=== PATIENT | female | born 1985 | race Caucasian/White ===

== ENCOUNTER 2017-05-19 16:56 | Inpatient (IN) | payer OTHER ==
[2017-05-19 17:47] VITALS: BMI 23.9
--- NOTE | 2017-05-19 18:49 | HP ---
Admission ROS [facility] - [facility] Chief Complaint: i want to go to rehab Allergies/Adverse Reactions: Allergies Allergy/AdvReac Type Severity Reaction Status Date / Time No Known Allergies Allergy Verified 05/19/17 18:48 History of Present Illness: 32 years old female with long history of heroin nicotine dependence has hepatitis c and depression is admitted to rehab Exam Limitations: No Limitations - Ebola screening Have you traveled outside of the country in the last 21 days: No (N) Have you had contact with anyone from an Ebola affected area: No Have you been sick,other than usual withdrawal symptoms: No Do you have a fever: No - Review of Systems Constitutional: Weight Stable EENT: reports: No Symptoms Reported Respiratory: reports: No Symptoms reported Cardiac: reports: No Symptoms Reported GI: reports: No Symptoms Reported : reports: No Symptoms Reported Musculoskeletal: reports: No Symptoms Reported Integumentary: reports: Change in Color (hands wrists iv curtis) Neuro: reports: No Symptoms reported Endocrine: reports: No Symptoms Reported Hematology: reports: No Symptoms Reported Psychiatric: reports: Judgement Intact, Orientated x3, Anxious, Depressed Other Systems: Reviewed and Negative Patient History - Patient Medical History Hx Anemia: No Hx Asthma: No Hx Chronic Obstructive Pulmonary Disease (COPD): No Hx Cancer: No Hx Cardiac Disorders: No Hx Congestive Heart Failure: No Hx Hypertension: No Hx Hypercholesterolemia: No Hx Pacemaker: No HX Cerebrovascular Accident: No Hx Seizures: No Hx Dementia: No Hx Diabetes: No Hx Gastrointestinal Disorders: No Hx Liver Disease: No Hx Genitourinary Disorders: No Hx Sexually Transmitted Disorders: No Hx Renal Disease (ESRD): No Hx Thyroid Disease: No Hx Human Immunodeficiency Virus (HIV): No Hx Hepatitis C: Yes Hx Depression: Yes Hx Suicide Attempt: No Hx Bipolar Disorder: No Hx Schizophrenia: No - Patient Surgical History Past Surgical History: Yes Hx Neurologic Surgery: No Hx Cataract Extraction: No Hx Cardiac Surgery: No Hx Lung Surgery: No Hx Breast Surgery: No Hx Breast Biopsy: No Hx Abdominal Surgery: No Hx Appendectomy: No Hx Cholecystectomy: No Hx Genitourinary Surgery: No Hx Section: Yes (x 1 2011) Hx Orthopedic Surgery: Yes (right mid finger 2017) Hx Hysterectomy: No Anesthesia Reaction: No - PPD History Previous Implant?: Yes Documented Results: Negative w/o proof Implanted On Prior R Admission?: No PPD to be Administered?: Yes - Reproductive History Patient is a Female of Child Bearing Age (11 -55 yrs old): Yes Last Menstrual Period: 05/19/12 Patient : No - Smoking Cessation Smoking history: Current every day smoker Have you smoked in the past 12 months: Yes Aproximately how many cigarettes per day: 20 Cigars Per Day: 0 Hx Chewing Tobacco Use: No Initiated information on smoking cessation: Yes 'Breaking Loose' booklet given: 05/19/17 - Substance & Tx. History Hx Alcohol Use: No Hx Substance Use: Yes Substance Use Type: Heroin Hx Substance Use Treatment: Yes (06/2016 [facility]) - Substances Abused Heroin Route: Injection Frequency: Daily Amount used: 20 bags Age of first use: 26 Date of Last Use: 05/12/17 Family Disease History - Family Disease History Family Disease History: Heart Disease: Father, Other: Mother (no contact), Sister (no contact) Admission Physical Exam S - Vital Signs Vital Signs: Vital Signs - 24 hr 05/19/17 17:45 Temperature 98.1 F Pulse Rate 99 H Respiratory 18 Rate Blood Pressure 115/70 - Physical General Appearance: Yes: No Apparent Distress, Nourished, Appropriately Dressed HEENTM: Yes: Hearing grossly Normal, Normal ENT Inspection, Normocephalic, Normal Voice Respiratory: Yes: Chest Non-Tender, Lungs Clear, Normal Breath Sounds, No Respiratory Distress, No Accessory Muscle Use Neck: Yes: Supple, Trachea in good position Breast: Yes: Breasts Symetrical Cardiology: Yes: Regular Rhythm, S1, S2, Tachycardia Abdominal: Yes: Normal Bowel Sounds, Non Tender, Soft Genitourinary: Yes: Within Normal Limits Back: Yes: Normal Inspection, Vertebral Tenderness Musculoskeletal: Yes: full range of Motion, Gait Steady Extremities: Yes: Normal Range of Motion, Non-Tender, Other (iv heroin both hands + wrists) Neurological: Yes: Fully Oriented, Alert, Motor Strength 5/5, Normal Mood/Affect , Normal Response Integumentary: Yes: Warm, Track Curtis Lymphatic: Yes: Within Normal Limits - Diagnostic (1) Alcohol dependence with uncomplicated withdrawal Current Visit: Yes Status: Acute (2) Anxiety and depression Current Visit: Yes Status: Suspected (3) Hepatitis C Current Visit: Yes Status: Chronic Qualifiers: Viral hepatitis chronicity: chronic Hepatic coma status: without hepatic coma Qualified Code(s): B18.2 - Chronic viral hepatitis C (4) Nicotine dependence Current Visit: Yes Status: Acute Qualifiers: Nicotine product type: cigarettes Substance use status: in withdrawal Qualified Code(s): F17.213 - Nicotine dependence, cigarettes, with withdrawal Cleared for Admission [facility] - Detox or Rehab [facility] Level of Care: Observation Bed Detox Regimen/Protocol: Not Applicable Claeared for Rehab Admission: Yes [facility] Breath Alcohol Content Breath Alcohol Content: 0 Urine Pregancy Test - Result Urine Test Results: Negative- NO Line Present Urine Drug Screen - Results Drug Screen Negative: No Urine Drug Screen Results: BZO-Benzodiazepines
[2017-05-19] MEDS ORDERED: MENTHOL/PHENOL 1 EACH UD MM PRN (19:07)
[2017-05-19] MEDS ORDERED: guaiFENesin/D-METHORPHAN HB 10 ML UNIT-DOSE CUPS PO PRN (19:07)
[2017-05-19] MEDS ORDERED: ACETAMINOPHEN 325 MG TABLET (FP) PO PRN (19:07)
[2017-05-19] MEDS ORDERED: MAGNESIUM CITRATE 300 ML BOTTLE PO PRN (19:07)
[2017-05-19] MEDS ORDERED: LOPERAMIDE HCL 2 MG CAPSULE PO PRN (19:07)
[2017-05-19] MEDS: THIAMINE HCL 100 MG TABLET (FP) PO SCH (23:44)
[2017-05-19] MEDS ORDERED: TUBERCULIN PPD 5 TU/0.1ML VIAL ID ONE (23:48)
--- NOTE | 2017-05-20 00:50 | PN ---
[facility] Progress Note Note: Psychiatry Attending's on-call note : Called to enter orders for medications. New admission : 32 y/o female seeking rehabilitation care for heroin dependence. First time referral to [facility] ([facility]). Discharged today from [facility] in [place] (detox). Diagnosed with MDD and Anxiety Disorder.Self-report. Ms Reis is requesting the following medications : seroquel 150 mg + trazodone 50 mg + remeron 15 mg. " These are my bedtime medications." Medications reconciled. No trazodone on file. Spoke to patient via telephone. Plan of care : Seroquel 50 mg po NOW. Will not order remeron or trazodone at this time. Gabapentin and sertraline to resume after psychiatric evaluation in AM. Side effects/benefits of seroquel are discussed with the patient. She aknowledges consent to this careplan.Normal vitals. Discussed with nurse on duty.
[2017-05-20] MEDS ORDERED: QUEtiapine FUMARATE 50 MG TABLET PO ONE ×2 (00:52→01:15)
[2017-05-20 02:50] LABS: URINE APPEARANCE SLCLOUDY; URINE BILIRUBIN NEGATIVE (NEGATIVE); URINE BLOOD NEGATIVE (NEGATIVE); URINE COLOR YELLOW; URINE GLUCOSE (UA) NEGATIVE (NEGATIVE); URINE KETONE NEGATIVE (NEGATIVE); URINE LEUK ESTERASE NEGATIVE (NEGATIVE); URINE NITRITE NEGATIVE (NEGATIVE); URINE PROTEIN NEGATIVE (NEGATIVE); URINE UROBILINOGEN NEGATIVE mg/dL (0.2-1.0)
--- NOTE | 2017-05-20 06:56 | HP ---
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 Smokes cigarettes 1ppd Psychiatric History: Reports that her first psychiatric contact was in college as a sophomore. She said that she was diagnosed with MDD, Anxiety and ADHD. Reports that she was tried on several medications including Lexapro, Zoloft, Adderall. Reports 4 previous psychiatric admissions to [facility]( short term unit) with most recent one being 05/14/17 to 05/19/17. She was discharged on Gabapentin 600 mg poTID, Seroquel 50 mg BID & 150 mg HS, Remeron 15 mg po HS and Trazadone 50 mg po HS. She denies history of suicidal attempt but has had SI. At present, reports feeling mildly depressed and sleeing poorly off medication. Physical/Sexual Abuse/Trauma History: Denies history of verbal, physical or sexual abuseas well as DV relationship Additional Comment: Reports history of a few felony arrests/convictions. Not on parole/probation but has an open case( posession of narcotic) Vital Signs: Vital Signs - 24 hr 05/19/17 05/20/17 17:45 03:30 Temperature 98.1 F Pulse Rate 99 H Respiratory 18 18 Rate Blood Pressure 115/70 Allergies/Adverse Reactions: Allergies Allergy/AdvReac Type Severity Reaction Status Date / Time No Known Allergies Allergy Verified 05/19/17 18:48 Date of last physical exam: 05/19/17 Concur with the findings of this exam: Yes - Substance Abuse/Tx History Hx Alcohol Use: No Hx Substance Use: Yes Substance Use Type: Heroin (Started using heroin at age 26, consumes 20 bags daily. Last used on 05/12/17) Hx Substance Use Treatment: Yes (2 previous inpt detox & 2 inpt rehab admissions ) Mental Status Exam - Mental Status Exam Alert and Oriented to: Time, Place, Person Cognitive Function: Fair Patient Appearance: Well Groomed Mood: Depressed (mildly) Affect: Appropriate Patient Behavior: Cooperative Speech Pattern: Clear Voice Loudness: Normal Thought Process: Intact, Goal Oriented Thought Disorder: Not Present Hallucinations: Denies Suicidal Ideation: Denies Homicidal Ideation: Denies Insight/Judgement: Fair Sleep: Poorly Appetite: Fair Muscle strength/Tone: Normal Gait/Station: Normal Psychiatric Findings - Problem List ([place] 1, 2,3) (1) Opioid dependence Current Visit: Yes Status: Acute (2) Nicotine dependence Current Visit: Yes Status: Chronic Qualifiers: Nicotine product type: cigarettes Substance use status: in withdrawal Qualified Code(s): F17.213 - Nicotine dependence, cigarettes, with withdrawal (3) MDD (major depressive disorder), recurrent episode, moderate Current Visit: Yes Status: Chronic (4) ADHD (attention deficit hyperactivity disorder) Current Visit: Yes Status: Chronic (5) Hepatitis C Current Visit: Yes Status: Chronic Qualifiers: Viral hepatitis chronicity: chronic Hepatic coma status: without hepatic coma Qualified Code(s): B18.2 - Chronic viral hepatitis C - Initial Treatment Plan Initial Treatment Plan: 1) Continue Gabapentin 600 mg po TID, Seroquel 50 mg BID & 150 mg HS, Remeron 15 mg po HS and Trazadone 50 mg po HS. 2) Monitor progress
[2017-05-20] MEDS: PRENATAL VITAMINS W/ FOLIC ACID TABLET (FP) PO SCH (09:53)
[2017-05-20] MEDS: NICOTINE 21 MG/24 HOURS TOPICAL PATCH TD SCH (09:53)
[2017-05-20 10:21] LABS: HEMATOCRIT 40.6 % (32.4-45.2); HEMOGLOBIN 13.1 GM/dL (10.7-15.3); MCH 27.7 pg (25.7-33.7); MCHC 32.2 g/dl (32.0-36.0); PLATELET COUNT 304 K/MM3 (134-434); RBC 4.72 M/mm3 (3.60-5.2); RDW 12.9 % (11.6-15.6); WHITE BLOOD COUNT 7.1 K/mm3 (4.0-10.0)
[2017-05-20 10:30] LABS: ALBUMIN 4.3 g/dl (3.4-5.0); ANION GAP 6 (8-16); BILIRUBIN,TOTAL 0.6 mg/dL (0.2-1.0); BLOOD UREA NITROGEN 20 mg/dL (7-18); CALCIUM 9.1 mg/dL (8.5-10.1); CHLORIDE 105 mmol/L (98-107); CO2 28 mmol/L (21-32); GLUCOSE,RANDOM 108 mg/dL (74-106); POTASSIUM 4.7 mmol/L (3.5-5.1); SGOT/AST 12 U/L (15-37); SGPT/ALT 20 U/L (12-78); SODIUM 139 mmol/L (136-145); TOT PROT 8.4 g/dl (6.4-8.2)
[2017-05-20 10:31] LABS: ALK PHOS 49 U/L (45-117)
[2017-05-20] MEDS: GABAPENTIN 300 MG CAPSULE (FP) PO SCH ×2 (11:00→21:25)
[2017-05-20] MEDS: SERTRALINE HCL 50 MG TABLET (FP) PO SCH (11:09)
[2017-05-20] MEDS: QUEtiapine FUMARATE 50 MG TABLET PO SCH ×3 (11:10→21:25)
--- NOTE | 2017-05-20 12:53 | PN ---
[facility] Progress Note (SOAP) Subjective: requesting to start suboxone MAT, lives [facility] ther are not very many program michael go to [facility] if she has to reporting cravings and desirue to use , drug drems Objective: 05/20/17 12:52 Vital Signs - 8 hr 05/20/17 06:55 Temperature 98.3 F Pulse Rate 76 Respiratory 18 Rate Blood Pressure 104/65 Laboratory Tests 05/19/17 05/20/17 05/20/17 23:19 07:00 07:00 WBC 7.1 RBC 4.72 Hgb 13.1 Hct 40.6 MCV 86.0 MCH 27.7 MCHC 32.2 RDW 12.9 Plt Count 304 MPV 9.0 Sodium 139 Potassium 4.7 Chloride 105 Carbon Dioxide 28 Anion Gap 6 L BUN 20 H Creatinine 1.0 Creat Clearance w eGFR > 60 Random Glucose 108 H Calcium 9.1 Total Bilirubin 0.6 AST 12 L ALT 20 Alkaline Phosphatase 49 Total Protein 8.4 H Albumin 4.3 Urine Color Yellow Urine Appearance Slcloudy Urine pH 7.0 Ur Specific [place] 1.014 Urine Protein Negative Urine Glucose (UA) Negative Urine Ketones Negative Urine Blood Negative Urine Nitrite Negative Urine Bilirubin Negative Urine Urobilinogen Negative Ur Leukocyte Esterase Negative RPR Titer HIV 1&2 Antibody Screen HIV P24 Antigen 05/20/17 05/20/17 07:00 07:00 WBC RBC Hgb Hct MCV MCH MCHC RDW Plt Count MPV Sodium Potassium Chloride Carbon Dioxide Anion Gap BUN Creatinine Creat Clearance w eGFR Random Glucose Calcium Total Bilirubin AST ALT Alkaline Phosphatase Total Protein Albumin Urine Color Urine Appearance Urine pH Ur Specific [place] Urine Protein Urine Glucose (UA) Urine Ketones Urine Blood Urine Nitrite Urine Bilirubin Urine Urobilinogen Ur Leukocyte Esterase RPR Titer Nonreactive HIV 1&2 Antibody Screen Negative HIV P24 Antigen Negative labs reviewed Assessment: 05/20/17 12:52 protracted opioid withdrawal sx w craving will start suboxone 2mg daily until appt made, then increase to dose adequate to suppoess cravings.
[2017-05-20] MEDS: BUPRENORPHINE/NALOXONE 2 MG/0.5 MG FILM PACKET SL SCH (13:11)
[2017-05-20] MEDS: THIAMINE HCL 100 MG TABLET (FP) PO SCH (21:25)
[2017-05-20] MEDS: MIRTAZAPINE 15 MG TABLET (FP) PO SCH (21:28)
[2017-05-21] MEDS: GABAPENTIN 300 MG CAPSULE (FP) PO SCH ×3 (06:36→21:20)
[2017-05-21] MEDS: SERTRALINE HCL 50 MG TABLET (FP) PO SCH (09:50)
[2017-05-21] MEDS: BUPRENORPHINE/NALOXONE 2 MG/0.5 MG FILM PACKET SL SCH (09:50)
[2017-05-21] MEDS: NICOTINE 21 MG/24 HOURS TOPICAL PATCH TD SCH (09:50)
[2017-05-21] MEDS: QUEtiapine FUMARATE 50 MG TABLET PO SCH ×3 (09:51→21:20)
[2017-05-21] MEDS: PRENATAL VITAMINS W/ FOLIC ACID TABLET (FP) PO SCH (09:51)
[2017-05-21] MEDS: NICOTINE POLACRILEX 4 MG GUM BC PRN (20:03)
[2017-05-21] MEDS: MIRTAZAPINE 15 MG TABLET (FP) PO SCH (21:20)
[2017-05-21] MEDS: THIAMINE HCL 100 MG TABLET (FP) PO SCH (21:21)
[2017-05-22] MEDS: GABAPENTIN 300 MG CAPSULE (FP) PO SCH ×3 (06:44→21:26)
[2017-05-22] MEDS: NICOTINE 21 MG/24 HOURS TOPICAL PATCH TD SCH (09:57)
[2017-05-22] MEDS: QUEtiapine FUMARATE 50 MG TABLET PO SCH ×3 (09:57→21:26)
[2017-05-22] MEDS: PRENATAL VITAMINS W/ FOLIC ACID TABLET (FP) PO SCH (09:57)
[2017-05-22] MEDS: BUPRENORPHINE/NALOXONE 2 MG/0.5 MG FILM PACKET SL SCH (09:57)
[2017-05-22] MEDS: SERTRALINE HCL 50 MG TABLET (FP) PO SCH (09:57)
[2017-05-22] MEDS: THIAMINE HCL 100 MG TABLET (FP) PO SCH (21:26)
[2017-05-22] MEDS: MIRTAZAPINE 15 MG TABLET (FP) PO SCH (21:26)
[2017-05-23] MEDS: IBUPROFEN 400 MG TABLET (FP) PO PRN ×2 (06:13→14:23)
[2017-05-23] MEDS: GABAPENTIN 300 MG CAPSULE (FP) PO SCH ×3 (06:14→21:26)
[2017-05-23] MEDS: SERTRALINE HCL 50 MG TABLET (FP) PO SCH (10:10)
[2017-05-23] MEDS: NICOTINE 21 MG/24 HOURS TOPICAL PATCH TD SCH (10:10)
[2017-05-23] MEDS: QUEtiapine FUMARATE 50 MG TABLET PO SCH ×3 (10:10→21:26)
[2017-05-23] MEDS: PRENATAL VITAMINS W/ FOLIC ACID TABLET (FP) PO SCH (10:10)
[2017-05-23] MEDS: BUPRENORPHINE/NALOXONE 2 MG/0.5 MG FILM PACKET SL SCH (10:10)
[2017-05-23] MEDS: NICOTINE POLACRILEX 4 MG GUM BC PRN (14:24)
--- NOTE | 2017-05-23 15:04 | PN ---
S Progress Note (SOAP) Subjective: c/o protracted opioid withdrawal sx, would like to increase dose will follow [place] [facility] [place] Objective: 05/23/17 15:03 Vital Signs - 24 hr 05/23/17 05/23/17 05/23/17 00:30 03:30 07:36 Temperature 98.4 F Pulse Rate 75 Respiratory 18 18 18 Rate Blood Pressure 104/62 Laboratory Tests 05/19/17 05/20/17 05/20/17 23:19 07:00 07:00 WBC 7.1 RBC 4.72 Hgb 13.1 Hct 40.6 MCV 86.0 MCH 27.7 MCHC 32.2 RDW 12.9 Plt Count 304 MPV 9.0 Sodium 139 Potassium 4.7 Chloride 105 Carbon Dioxide 28 Anion Gap 6 L BUN 20 H Creatinine 1.0 Creat Clearance w eGFR > 60 Random Glucose 108 H Calcium 9.1 Total Bilirubin 0.6 AST 12 L ALT 20 Alkaline Phosphatase 49 Total Protein 8.4 H Albumin 4.3 Urine Color Yellow Urine Appearance Slcloudy Urine pH 7.0 Ur Specific [place] 1.014 Urine Protein Negative Urine Glucose (UA) Negative Urine Ketones Negative Urine Blood Negative Urine Nitrite Negative Urine Bilirubin Negative Urine Urobilinogen Negative Ur Leukocyte Esterase Negative RPR Titer HIV 1&2 Antibody Screen HIV P24 Antigen 05/20/17 05/20/17 07:00 07:00 WBC RBC Hgb Hct MCV MCH MCHC RDW Plt Count MPV Sodium Potassium Chloride Carbon Dioxide Anion Gap BUN Creatinine Creat Clearance w eGFR Random Glucose Calcium Total Bilirubin AST ALT Alkaline Phosphatase Total Protein Albumin Urine Color Urine Appearance Urine pH Ur Specific [place] Urine Protein Urine Glucose (UA) Urine Ketones Urine Blood Urine Nitrite Urine Bilirubin Urine Urobilinogen Ur Leukocyte Esterase RPR Titer Nonreactive HIV 1&2 Antibody Screen Negative HIV P24 Antigen Negative revejacinto, [facility] wnl Assessment: 05/23/17 15:03 increase dose to 8mg daily, extra 2mg today total 4mg today.
[2017-05-23] MEDS: CYCLOBENZAPRINE HCL 10 MG TABLET (FP) PO SCH ×2 (15:56→21:27)
[2017-05-23] MEDS: PANTOPRAZOLE 40 MG TABLET (FP) PO SCH (15:56)
[2017-05-23] MEDS ORDERED: cloNIDine HCL 0.1 MG TABLET PO ONE (17:45)
[2017-05-23] MEDS ORDERED: BUPRENORPHINE/NALOXONE 2 MG/0.5 MG FILM PACKET SL ONE (17:45)
[2017-05-23] MEDS: THIAMINE HCL 100 MG TABLET (FP) PO SCH (21:25)
[2017-05-23] MEDS: MIRTAZAPINE 15 MG TABLET (FP) PO SCH (21:26)
[2017-05-23] MEDS: NAPROXEN 500 MG TABLET (FP) PO SCH (21:26)
[2017-05-23] MEDS: cloNIDine HCL 0.1 MG TABLET PO SCH (21:27)
--- NOTE | 2017-05-24 01:58 | EKG ---
Test Reason : Blood Pressure : / mmHG Vent. Rate : 083 BPM Atrial Rate : 083 BPM P-R Int : 138 ms QRS Dur : 092 ms QT Int : 410 ms P-R-T Axes : 069 060 063 degrees QTc Int : 481 ms NORMAL SINUS RHYTHM POSSIBLE LEFT ATRIAL ENLARGEMENT POSSIBLE INFERIOR INFARCT (CITED ON OR BEFORE 20-MAY-2017) POSSIBLE ANTEROLATERAL INFARCT (CITED ON OR BEFORE 20-MAY-2017) ABNORMAL ECG WHEN COMPARED WITH ECG OF 20-MAY-2017 01:11, NO SIGNIFICANT CHANGE WAS FOUND Confirmed by DENIS LÓPEZ MD ([id number]) on 05/24/2017 1:58:01 AM Referred By: Panfilo Simeon Confirmed By:DENIS LÓPEZ MD
[2017-05-24] MEDS: GABAPENTIN 300 MG CAPSULE (FP) PO SCH ×3 (06:17→21:22)
[2017-05-24] MEDS: CYCLOBENZAPRINE HCL 10 MG TABLET (FP) PO SCH ×3 (06:17→21:22)
[2017-05-24] MEDS ORDERED: PT OWN MED DRAWER 7, Y5N ONE (08:53)
[2017-05-24] MEDS: NAPROXEN 500 MG TABLET (FP) PO SCH ×2 (10:01→21:22)
[2017-05-24] MEDS: NICOTINE 21 MG/24 HOURS TOPICAL PATCH TD SCH (10:01)
[2017-05-24] MEDS: BUPRENORPHINE/NALOXONE 8 MG/2 MG FILM PACKET SL SCH (10:01)
[2017-05-24] MEDS: PRENATAL VITAMINS W/ FOLIC ACID TABLET (FP) PO SCH (10:01)
[2017-05-24] MEDS: SERTRALINE HCL 50 MG TABLET (FP) PO SCH (10:01)
[2017-05-24] MEDS: cloNIDine HCL 0.1 MG TABLET PO SCH ×2 (10:01→21:22)
[2017-05-24] MEDS: PANTOPRAZOLE 40 MG TABLET (FP) PO SCH (10:01)
[2017-05-24] MEDS: QUEtiapine FUMARATE 50 MG TABLET PO SCH ×3 (10:01→21:23)
[2017-05-24] MEDS: THIAMINE HCL 100 MG TABLET (FP) PO SCH (21:22)
[2017-05-24] MEDS: MIRTAZAPINE 15 MG TABLET (FP) PO SCH (21:25)
[2017-05-25] MEDS: CYCLOBENZAPRINE HCL 10 MG TABLET (FP) PO SCH ×3 (06:16→21:12)
[2017-05-25] MEDS: GABAPENTIN 300 MG CAPSULE (FP) PO SCH ×3 (06:16→21:12)
[2017-05-25] MEDS: SERTRALINE HCL 50 MG TABLET (FP) PO SCH (10:01)
[2017-05-25] MEDS: QUEtiapine FUMARATE 50 MG TABLET PO SCH ×3 (10:01→21:12)
[2017-05-25] MEDS: BUPRENORPHINE/NALOXONE 8 MG/2 MG FILM PACKET SL SCH (10:01)
[2017-05-25] MEDS: PANTOPRAZOLE 40 MG TABLET (FP) PO SCH (10:01)
[2017-05-25] MEDS: cloNIDine HCL 0.1 MG TABLET PO SCH ×2 (10:01→21:11)
[2017-05-25] MEDS: NAPROXEN 500 MG TABLET (FP) PO SCH ×2 (10:01→21:12)
[2017-05-25] MEDS: PRENATAL VITAMINS W/ FOLIC ACID TABLET (FP) PO SCH (10:01)
[2017-05-25] MEDS: NICOTINE 21 MG/24 HOURS TOPICAL PATCH TD SCH (10:02)
[2017-05-25] MEDS: MIRTAZAPINE 15 MG TABLET (FP) PO SCH (21:12)
[2017-05-25] MEDS: THIAMINE HCL 100 MG TABLET (FP) PO SCH (21:12)
[2017-05-26] MEDS: CYCLOBENZAPRINE HCL 10 MG TABLET (FP) PO SCH ×3 (06:17→21:04)
[2017-05-26] MEDS: GABAPENTIN 300 MG CAPSULE (FP) PO SCH ×3 (06:17→21:04)
[2017-05-26] MEDS: cloNIDine HCL 0.1 MG TABLET PO SCH ×2 (09:31→21:04)
[2017-05-26] MEDS: SERTRALINE HCL 50 MG TABLET (FP) PO SCH (09:31)
[2017-05-26] MEDS: PRENATAL VITAMINS W/ FOLIC ACID TABLET (FP) PO SCH (09:31)
[2017-05-26] MEDS: NAPROXEN 500 MG TABLET (FP) PO SCH ×2 (09:31→21:04)
[2017-05-26] MEDS: PANTOPRAZOLE 40 MG TABLET (FP) PO SCH (09:32)
[2017-05-26] MEDS: QUEtiapine FUMARATE 50 MG TABLET PO SCH ×3 (09:32→21:04)
[2017-05-26] MEDS: NICOTINE 21 MG/24 HOURS TOPICAL PATCH TD SCH (09:32)
[2017-05-26] MEDS: BUPRENORPHINE/NALOXONE 8 MG/2 MG FILM PACKET SL SCH (09:32)
[2017-05-26] MEDS: MIRTAZAPINE 15 MG TABLET (FP) PO SCH (21:04)
[2017-05-26] MEDS: THIAMINE HCL 100 MG TABLET (FP) PO SCH (21:05)
[2017-05-27] MEDS: GABAPENTIN 300 MG CAPSULE (FP) PO SCH ×3 (06:09→21:28)
[2017-05-27] MEDS: CYCLOBENZAPRINE HCL 10 MG TABLET (FP) PO SCH ×3 (06:09→21:28)
[2017-05-27] MEDS: BUPRENORPHINE/NALOXONE 8 MG/2 MG FILM PACKET SL SCH (10:10)
[2017-05-27] MEDS: NAPROXEN 500 MG TABLET (FP) PO SCH ×2 (10:10→21:28)
[2017-05-27] MEDS: cloNIDine HCL 0.1 MG TABLET PO SCH ×2 (10:10→21:30)
[2017-05-27] MEDS: SERTRALINE HCL 50 MG TABLET (FP) PO SCH (10:10)
[2017-05-27] MEDS: QUEtiapine FUMARATE 50 MG TABLET PO SCH ×3 (10:10→21:28)
[2017-05-27] MEDS: PANTOPRAZOLE 40 MG TABLET (FP) PO SCH (10:10)
[2017-05-27] MEDS: PRENATAL VITAMINS W/ FOLIC ACID TABLET (FP) PO SCH (10:10)
[2017-05-27] MEDS: NICOTINE 21 MG/24 HOURS TOPICAL PATCH TD SCH (10:10)
--- NOTE | 2017-05-27 12:01 | PN ---
Progress Note (short form) - Note Progress Note: noticed a mass in the shower yesterday in the middle of her abdomen above her belly button. requests increase in suboxone, will be here for an additional 2w to complete rehab. also c/o lower back pain worse at the end of the day, was better with motrin. denies pain, n/v, diarrhea, hematochezia, abdominal pain, melena. PE: ABd: soft, nontender/nd. +normactive BS in all four quadrants. 4x4cm anterior periumbilical hernia, easily reducible. assessment: periumbilical hernia and constipation. Plan: counseled patient on elective hernia repair after rehab, recommended monitoring for pain, hematochezia, n/v, fevers, discoloration, tenderness, incarceration answered questions to her satisfaction pericolace added for constipation discussed with Dr. Salgado
[2017-05-27] MEDS: MIRTAZAPINE 15 MG TABLET (FP) PO SCH (21:28)
[2017-05-27] MEDS: SENNOSIDES/DOCUSATE COMBO (SENNA PLUS) TABLET (UD) PO SCH (21:28)
[2017-05-27] MEDS: THIAMINE HCL 100 MG TABLET (FP) PO SCH (21:28)
[2017-05-28] MEDS: CYCLOBENZAPRINE HCL 10 MG TABLET (FP) PO SCH ×3 (06:04→21:27)
[2017-05-28] MEDS: GABAPENTIN 300 MG CAPSULE (FP) PO SCH ×3 (06:04→21:27)
[2017-05-28] MEDS: BUPRENORPHINE/NALOXONE 8 MG/2 MG FILM PACKET SL SCH (09:51)
[2017-05-28] MEDS: SERTRALINE HCL 50 MG TABLET (FP) PO SCH (09:51)
[2017-05-28] MEDS: PRENATAL VITAMINS W/ FOLIC ACID TABLET (FP) PO SCH (09:51)
[2017-05-28] MEDS: QUEtiapine FUMARATE 50 MG TABLET PO SCH ×3 (09:51→21:27)
[2017-05-28] MEDS: NAPROXEN 500 MG TABLET (FP) PO SCH ×2 (09:51→21:27)
[2017-05-28] MEDS: cloNIDine HCL 0.1 MG TABLET PO SCH ×2 (09:51→21:30)
[2017-05-28] MEDS: NICOTINE 21 MG/24 HOURS TOPICAL PATCH TD SCH (09:51)
[2017-05-28] MEDS: PANTOPRAZOLE 40 MG TABLET (FP) PO SCH (09:51)
[2017-05-28] MEDS: SENNOSIDES/DOCUSATE COMBO (SENNA PLUS) TABLET (UD) PO SCH (21:27)
[2017-05-28] MEDS: THIAMINE HCL 100 MG TABLET (FP) PO SCH (21:27)
[2017-05-28] MEDS: MIRTAZAPINE 15 MG TABLET (FP) PO SCH (21:27)
[2017-05-29] MEDS: GABAPENTIN 300 MG CAPSULE (FP) PO SCH ×3 (06:13→21:25)
[2017-05-29] MEDS: CYCLOBENZAPRINE HCL 10 MG TABLET (FP) PO SCH ×3 (06:13→21:25)
[2017-05-29] MEDS: NAPROXEN 500 MG TABLET (FP) PO SCH ×2 (09:47→21:25)
[2017-05-29] MEDS: QUEtiapine FUMARATE 50 MG TABLET PO SCH ×3 (09:47→21:24)
[2017-05-29] MEDS: PANTOPRAZOLE 40 MG TABLET (FP) PO SCH (09:47)
[2017-05-29] MEDS: BUPRENORPHINE/NALOXONE 8 MG/2 MG FILM PACKET SL SCH (09:47)
[2017-05-29] MEDS: SERTRALINE HCL 50 MG TABLET (FP) PO SCH (09:47)
[2017-05-29] MEDS: PRENATAL VITAMINS W/ FOLIC ACID TABLET (FP) PO SCH (09:47)
[2017-05-29] MEDS: cloNIDine HCL 0.1 MG TABLET PO SCH ×2 (09:47→22:06)
[2017-05-29] MEDS: NICOTINE 21 MG/24 HOURS TOPICAL PATCH TD SCH (09:47)
[2017-05-29] MEDS: TRIMETHOBENZAMIDE HCL 300 MG CAPSULE PO PRN (14:29)
[2017-05-29] MEDS: THIAMINE HCL 100 MG TABLET (FP) PO SCH (21:24)
[2017-05-29] MEDS: SENNOSIDES/DOCUSATE COMBO (SENNA PLUS) TABLET (UD) PO SCH (21:24)
[2017-05-29] MEDS: MIRTAZAPINE 15 MG TABLET (FP) PO SCH (21:25)
[2017-05-30] MEDS: TRIMETHOBENZAMIDE HCL 300 MG CAPSULE PO PRN ×3 (03:59→21:38)
[2017-05-30] MEDS: CYCLOBENZAPRINE HCL 10 MG TABLET (FP) PO SCH ×3 (06:15→21:38)
[2017-05-30] MEDS: GABAPENTIN 300 MG CAPSULE (FP) PO SCH ×3 (06:15→21:38)
[2017-05-30] MEDS: NAPROXEN 500 MG TABLET (FP) PO SCH ×2 (10:04→21:38)
[2017-05-30] MEDS: PRENATAL VITAMINS W/ FOLIC ACID TABLET (FP) PO SCH (10:04)
[2017-05-30] MEDS: PANTOPRAZOLE 40 MG TABLET (FP) PO SCH (10:04)
[2017-05-30] MEDS: cloNIDine HCL 0.1 MG TABLET PO SCH ×2 (10:04→21:38)
[2017-05-30] MEDS: NICOTINE 21 MG/24 HOURS TOPICAL PATCH TD SCH (10:04)
[2017-05-30] MEDS: SERTRALINE HCL 50 MG TABLET (FP) PO SCH (10:04)
[2017-05-30] MEDS: QUEtiapine FUMARATE 50 MG TABLET PO SCH ×3 (10:04→21:38)
[2017-05-30] MEDS ORDERED: BUPRENORPHINE/NALOXONE 8 MG/2 MG FILM PACKET SL ONE (10:55)
[2017-05-30] MEDS: MIRTAZAPINE 15 MG TABLET (FP) PO SCH (21:38)
[2017-05-30] MEDS: THIAMINE HCL 100 MG TABLET (FP) PO SCH (21:38)
[2017-05-30] MEDS: SENNOSIDES/DOCUSATE COMBO (SENNA PLUS) TABLET (UD) PO SCH (21:38)
[2017-05-31] MEDS: GABAPENTIN 300 MG CAPSULE (FP) PO SCH ×3 (06:21→21:32)
[2017-05-31] MEDS: CYCLOBENZAPRINE HCL 10 MG TABLET (FP) PO SCH ×3 (06:22→21:32)
[2017-05-31] MEDS: SERTRALINE HCL 50 MG TABLET (FP) PO SCH (10:02)
[2017-05-31] MEDS: PRENATAL VITAMINS W/ FOLIC ACID TABLET (FP) PO SCH (10:02)
[2017-05-31] MEDS: QUEtiapine FUMARATE 50 MG TABLET PO SCH ×3 (10:03→21:31)
[2017-05-31] MEDS: NAPROXEN 500 MG TABLET (FP) PO SCH ×2 (10:03→21:32)
[2017-05-31] MEDS: cloNIDine HCL 0.1 MG TABLET PO SCH ×2 (10:03→21:32)
[2017-05-31] MEDS: PANTOPRAZOLE 40 MG TABLET (FP) PO SCH (10:03)
[2017-05-31] MEDS: BUPRENORPHINE/NALOXONE 8 MG/2 MG FILM PACKET SL SCH (10:03)
[2017-05-31] MEDS: NICOTINE 21 MG/24 HOURS TOPICAL PATCH TD SCH (10:03)
[2017-05-31] MEDS: TRIMETHOBENZAMIDE HCL 300 MG CAPSULE PO PRN (12:16)
[2017-05-31] MEDS: MAGNESIUM HYDROX 2400MG/30ML ORAL SUSPENSION 30 ML CUP PO PRN (16:03)
[2017-05-31] MEDS: THIAMINE HCL 100 MG TABLET (FP) PO SCH (21:31)
[2017-05-31] MEDS: SENNOSIDES/DOCUSATE COMBO (SENNA PLUS) TABLET (UD) PO SCH (21:32)
[2017-05-31] MEDS: P-EPHED 60MG/TRIPROLIDI 2.5MG TABLET PO PRN (21:32)
[2017-05-31] MEDS: MIRTAZAPINE 15 MG TABLET (FP) PO SCH (21:32)
[2017-06-01] MEDS: GABAPENTIN 300 MG CAPSULE (FP) PO SCH ×3 (06:34→21:28)
[2017-06-01] MEDS: CYCLOBENZAPRINE HCL 10 MG TABLET (FP) PO SCH ×3 (06:34→21:29)
[2017-06-01] MEDS: cloNIDine HCL 0.1 MG TABLET PO SCH ×2 (10:17→21:30)
[2017-06-01] MEDS: NAPROXEN 500 MG TABLET (FP) PO SCH ×2 (10:17→21:28)
[2017-06-01] MEDS: QUEtiapine FUMARATE 50 MG TABLET PO SCH ×3 (10:17→21:28)
[2017-06-01] MEDS: PANTOPRAZOLE 40 MG TABLET (FP) PO SCH (10:17)
[2017-06-01] MEDS: NICOTINE 21 MG/24 HOURS TOPICAL PATCH TD SCH (10:17)
[2017-06-01] MEDS: SERTRALINE HCL 50 MG TABLET (FP) PO SCH (10:17)
[2017-06-01] MEDS: PRENATAL VITAMINS W/ FOLIC ACID TABLET (FP) PO SCH (10:17)
[2017-06-01] MEDS: BUPRENORPHINE/NALOXONE 8 MG/2 MG FILM PACKET SL SCH (10:17)
[2017-06-01] MEDS: MIRTAZAPINE 15 MG TABLET (FP) PO SCH (21:28)
[2017-06-01] MEDS: THIAMINE HCL 100 MG TABLET (FP) PO SCH (21:28)
[2017-06-01] MEDS: SENNOSIDES/DOCUSATE COMBO (SENNA PLUS) TABLET (UD) PO SCH (21:29)
[2017-06-02] MEDS: GABAPENTIN 300 MG CAPSULE (FP) PO SCH ×3 (06:32→21:26)
[2017-06-02] MEDS: CYCLOBENZAPRINE HCL 10 MG TABLET (FP) PO SCH ×3 (06:32→21:26)
[2017-06-02] MEDS: cloNIDine HCL 0.1 MG TABLET PO SCH ×2 (10:11→21:28)
[2017-06-02] MEDS: NAPROXEN 500 MG TABLET (FP) PO SCH ×2 (10:11→21:28)
[2017-06-02] MEDS: NICOTINE 21 MG/24 HOURS TOPICAL PATCH TD SCH (10:11)
[2017-06-02] MEDS: QUEtiapine FUMARATE 50 MG TABLET PO SCH ×3 (10:11→21:26)
[2017-06-02] MEDS: PANTOPRAZOLE 40 MG TABLET (FP) PO SCH (10:11)
[2017-06-02] MEDS: SERTRALINE HCL 50 MG TABLET (FP) PO SCH (10:11)
[2017-06-02] MEDS: BUPRENORPHINE/NALOXONE 8 MG/2 MG FILM PACKET SL SCH (10:11)
[2017-06-02] MEDS: PRENATAL VITAMINS W/ FOLIC ACID TABLET (FP) PO SCH (10:12)
[2017-06-02] MEDS: THIAMINE HCL 100 MG TABLET (FP) PO SCH (21:26)
[2017-06-02] MEDS: MIRTAZAPINE 15 MG TABLET (FP) PO SCH (21:26)
[2017-06-02] MEDS: SENNOSIDES/DOCUSATE COMBO (SENNA PLUS) TABLET (UD) PO SCH (21:27)
[2017-06-03] MEDS: GABAPENTIN 300 MG CAPSULE (FP) PO SCH ×3 (06:10→21:15)
[2017-06-03] MEDS: CYCLOBENZAPRINE HCL 10 MG TABLET (FP) PO SCH ×3 (06:10→21:15)
[2017-06-03] MEDS: P-EPHED 60MG/TRIPROLIDI 2.5MG TABLET PO PRN ×2 (07:12→22:22)
[2017-06-03] MEDS: QUEtiapine FUMARATE 50 MG TABLET PO SCH ×3 (09:47→21:15)
[2017-06-03] MEDS: PANTOPRAZOLE 40 MG TABLET (FP) PO SCH (09:47)
[2017-06-03] MEDS: NICOTINE 21 MG/24 HOURS TOPICAL PATCH TD SCH (09:47)
[2017-06-03] MEDS: NAPROXEN 500 MG TABLET (FP) PO SCH ×2 (09:47→21:15)
[2017-06-03] MEDS: cloNIDine HCL 0.1 MG TABLET PO SCH ×2 (09:47→21:17)
[2017-06-03] MEDS: SERTRALINE HCL 50 MG TABLET (FP) PO SCH (09:47)
[2017-06-03] MEDS: PRENATAL VITAMINS W/ FOLIC ACID TABLET (FP) PO SCH (09:48)
[2017-06-03] MEDS: BUPRENORPHINE/NALOXONE 8 MG/2 MG FILM PACKET SL SCH (09:48)
--- NOTE | 2017-06-03 14:40 | PN ---
[facility] Progress Note (SOAP) Subjective: c/o increased flatulance and constipation requesting outpatient prescription for suboxone for longer than 7 days because she will be going to a crisis center and they may not have the ability to give her suboxone plan rec to drink more water, take citroma/mylanta for constipation and increased bloating discussed with patient need for outpatient follow-up with suboxone and rec to discuss with counselor/crisis center about setting up outpatient suboxone follow -up. pt states understanding of requirement to have outpatient f/u for suboxone and only a 7 day rx will be provided at [facility]
[2017-06-03] MEDS: DOCUSATE SODIUM 100 MG CAPSULE (FP) PO SCH (21:14)
[2017-06-03] MEDS: THIAMINE HCL 100 MG TABLET (FP) PO SCH (21:14)
[2017-06-03] MEDS: MIRTAZAPINE 15 MG TABLET (FP) PO SCH (21:15)
[2017-06-03] MEDS: SENNOSIDES/DOCUSATE COMBO (SENNA PLUS) TABLET (UD) PO SCH (21:15)
[2017-06-04] MEDS: GABAPENTIN 300 MG CAPSULE (FP) PO SCH ×3 (06:16→21:16)
[2017-06-04] MEDS: CYCLOBENZAPRINE HCL 10 MG TABLET (FP) PO SCH ×3 (06:16→21:16)
[2017-06-04] MEDS: PRENATAL VITAMINS W/ FOLIC ACID TABLET (FP) PO SCH (09:35)
[2017-06-04] MEDS: SERTRALINE HCL 50 MG TABLET (FP) PO SCH (09:35)
[2017-06-04] MEDS: PANTOPRAZOLE 40 MG TABLET (FP) PO SCH (09:35)
[2017-06-04] MEDS: NAPROXEN 500 MG TABLET (FP) PO SCH ×2 (09:35→21:16)
[2017-06-04] MEDS: NICOTINE 21 MG/24 HOURS TOPICAL PATCH TD SCH (09:35)
[2017-06-04] MEDS: QUEtiapine FUMARATE 50 MG TABLET PO SCH ×3 (09:35→21:15)
[2017-06-04] MEDS: BUPRENORPHINE/NALOXONE 8 MG/2 MG FILM PACKET SL SCH (09:35)
[2017-06-04] MEDS: cloNIDine HCL 0.1 MG TABLET PO SCH ×2 (09:35→21:14)
[2017-06-04] MEDS: MAGNESIUM HYDROX 2400MG/30ML ORAL SUSPENSION 30 ML CUP PO PRN (09:37)
[2017-06-04] MEDS: THIAMINE HCL 100 MG TABLET (FP) PO SCH (21:14)
[2017-06-04] MEDS: DOCUSATE SODIUM 100 MG CAPSULE (FP) PO SCH (21:15)
[2017-06-04] MEDS: MIRTAZAPINE 15 MG TABLET (FP) PO SCH (21:16)
[2017-06-04] MEDS: SENNOSIDES/DOCUSATE COMBO (SENNA PLUS) TABLET (UD) PO SCH (21:16)
[2017-06-05] MEDS: GABAPENTIN 300 MG CAPSULE (FP) PO SCH ×3 (06:55→21:31)
[2017-06-05] MEDS: CYCLOBENZAPRINE HCL 10 MG TABLET (FP) PO SCH ×3 (06:56→21:31)
[2017-06-05] MEDS: QUEtiapine FUMARATE 50 MG TABLET PO SCH ×3 (09:28→21:31)
[2017-06-05] MEDS: BUPRENORPHINE/NALOXONE 8 MG/2 MG FILM PACKET SL SCH (09:28)
[2017-06-05] MEDS: NAPROXEN 500 MG TABLET (FP) PO SCH ×2 (09:28→21:32)
[2017-06-05] MEDS: PRENATAL VITAMINS W/ FOLIC ACID TABLET (FP) PO SCH (09:28)
[2017-06-05] MEDS: SERTRALINE HCL 50 MG TABLET (FP) PO SCH (09:28)
[2017-06-05] MEDS: cloNIDine HCL 0.1 MG TABLET PO SCH ×2 (09:28→21:31)
[2017-06-05] MEDS: PANTOPRAZOLE 40 MG TABLET (FP) PO SCH (09:28)
[2017-06-05] MEDS: NICOTINE 21 MG/24 HOURS TOPICAL PATCH TD SCH (09:29)
[2017-06-05] MEDS: THIAMINE HCL 100 MG TABLET (FP) PO SCH (21:31)
[2017-06-05] MEDS: DOCUSATE SODIUM 100 MG CAPSULE (FP) PO SCH (21:31)
[2017-06-05] MEDS: SENNOSIDES/DOCUSATE COMBO (SENNA PLUS) TABLET (UD) PO SCH (21:32)
[2017-06-05] MEDS: MIRTAZAPINE 15 MG TABLET (FP) PO SCH (21:32)
[2017-06-05] MEDS: P-EPHED 60MG/TRIPROLIDI 2.5MG TABLET PO PRN (22:10)
[2017-06-06] MEDS: GABAPENTIN 300 MG CAPSULE (FP) PO SCH ×3 (05:48→21:28)
[2017-06-06] MEDS: CYCLOBENZAPRINE HCL 10 MG TABLET (FP) PO SCH ×3 (05:49→21:26)
[2017-06-06] MEDS: NICOTINE 21 MG/24 HOURS TOPICAL PATCH TD SCH (10:04)
[2017-06-06] MEDS: QUEtiapine FUMARATE 50 MG TABLET PO SCH ×3 (10:04→21:27)
[2017-06-06] MEDS: P-EPHED 60MG/TRIPROLIDI 2.5MG TABLET PO PRN (10:04)
[2017-06-06] MEDS: SERTRALINE HCL 50 MG TABLET (FP) PO SCH (10:04)
[2017-06-06] MEDS: PRENATAL VITAMINS W/ FOLIC ACID TABLET (FP) PO SCH (10:04)
[2017-06-06] MEDS: cloNIDine HCL 0.1 MG TABLET PO SCH ×2 (10:04→21:27)
[2017-06-06] MEDS: NAPROXEN 500 MG TABLET (FP) PO SCH ×2 (10:04→21:27)
[2017-06-06] MEDS: PANTOPRAZOLE 40 MG TABLET (FP) PO SCH (10:04)
[2017-06-06] MEDS: BUPRENORPHINE/NALOXONE 8 MG/2 MG FILM PACKET SL SCH (10:04)
[2017-06-06] MEDS: THIAMINE HCL 100 MG TABLET (FP) PO SCH (21:27)
[2017-06-06] MEDS: SENNOSIDES/DOCUSATE COMBO (SENNA PLUS) TABLET (UD) PO SCH (21:27)
[2017-06-06] MEDS: MIRTAZAPINE 15 MG TABLET (FP) PO SCH (21:28)
[2017-06-06] MEDS: DOCUSATE SODIUM 100 MG CAPSULE (FP) PO SCH (21:31)
[2017-06-07] MEDS: CYCLOBENZAPRINE HCL 10 MG TABLET (FP) PO SCH ×3 (06:05→21:18)
[2017-06-07] MEDS: GABAPENTIN 300 MG CAPSULE (FP) PO SCH ×3 (06:05→21:18)
[2017-06-07] MEDS: NAPROXEN 500 MG TABLET (FP) PO SCH ×2 (10:03→21:19)
[2017-06-07] MEDS: NICOTINE 21 MG/24 HOURS TOPICAL PATCH TD SCH (10:03)
[2017-06-07] MEDS: PRENATAL VITAMINS W/ FOLIC ACID TABLET (FP) PO SCH (10:03)
[2017-06-07] MEDS: SERTRALINE HCL 50 MG TABLET (FP) PO SCH (10:03)
[2017-06-07] MEDS: cloNIDine HCL 0.1 MG TABLET PO SCH (10:03)
[2017-06-07] MEDS: PANTOPRAZOLE 40 MG TABLET (FP) PO SCH (10:03)
[2017-06-07] MEDS: QUEtiapine FUMARATE 50 MG TABLET PO SCH ×3 (10:03→21:17)
[2017-06-07] MEDS: BUPRENORPHINE/NALOXONE 8 MG/2 MG FILM PACKET SL SCH (11:02)
[2017-06-07] MEDS ORDERED: cloNIDine HCL 0.1 MG TABLET PO PRN (14:47)
[2017-06-07] MEDS: THIAMINE HCL 100 MG TABLET (FP) PO SCH (21:17)
[2017-06-07] MEDS: DOCUSATE SODIUM 100 MG CAPSULE (FP) PO SCH (21:18)
[2017-06-07] MEDS: MIRTAZAPINE 15 MG TABLET (FP) PO SCH (21:18)
[2017-06-07] MEDS: SENNOSIDES/DOCUSATE COMBO (SENNA PLUS) TABLET (UD) PO SCH (21:18)
[2017-06-08] MEDS: GABAPENTIN 300 MG CAPSULE (FP) PO SCH ×3 (06:17→21:21)
[2017-06-08] MEDS: CYCLOBENZAPRINE HCL 10 MG TABLET (FP) PO SCH ×3 (06:17→21:22)
--- NOTE | 2017-06-08 09:26 | PN ---
Psychiatric Progress Note Vital Signs: Vital Signs Period Temp Pulse Resp BP Sys/Evans Pulse Ox Last 24 Hr 97.4 F 93-107 16-20 80-113/49-70 ROS: Hep C Current Medications: Active Medications Generic Name Dose Route Start Last Admin Trade Name Freq PRN Reason Stop Dose Admin Acetaminophen 650 mg 05/19/17 19:07 Tylenol - PO Q4H PRN PAIN Al Hydroxide/Mg Hydroxide 30 ml 05/19/17 19:07 Mylanta Oral Suspension - PO Q6H PRN DYSPEPSIA Buprenorphine/Naloxone 1 each 06/07/17 10:00 06/07/17 11:02 Suboxone 8mg/2mg Sl Film - SL 06/14/17 09:59 1 each DAILY RAE Administration Clonidine 0.1 mg 06/07/17 14:47 Catapres - PO BID PRN ANXIETY Cyclobenzaprine HCl 10 mg 05/23/17 15:35 06/08/17 06:17 Flexeril - PO 10 mg TID RAE Administration Docusate Sodium 300 mg 06/03/17 22:00 06/07/17 21:18 Colace - PO 300 mg HS RAE Administration Eucalyptus/Menthol/Phenol/Sorbitol 1 each 05/19/17 19:07 Cepastat Lozenge - MM Q4H PRN SORE THROAT Gabapentin 600 mg 05/20/17 14:00 06/08/17 06:17 Neurontin - PO 600 mg TID RAE Administration Guaifenesin 10 ml 05/19/17 19:07 Robitussin Dm - PO Q6H PRN COUGH Ibuprofen 400 mg 05/19/17 19:07 05/23/17 14:23 Motrin - PO 400 mg Q6H PRN Administration SEVERE PAIN Loperamide HCl 4 mg 05/19/17 19:07 Imodium - PO Q6H PRN DIARRHEA Magnesium Citrate 300 ml 05/19/17 19:07 Citroma - PO Q48H PRN CONSTIPATION Magnesium Hydroxide 30 ml 05/19/17 19:07 06/04/17 09:37 Milk Of Magnesia - PO 30 ml DAILY PRN Administration CONSTIPATION Mirtazapine 15 mg 05/20/17 22:00 06/07/17 21:18 Remeron - PO 15 mg HS RAE Administration Naproxen 500 mg 05/23/17 22:00 06/07/17 21:19 Naprosyn - PO 500 mg BID RAE Administration Nicotine 21 mg 05/20/17 10:00 06/07/17 10:03 Nicoderm Patch - TD 21 mg DAILY RAE Administration Nicotine Polacrilex 4 mg 05/19/17 19:07 05/23/17 14:24 Nicorette Gum - BC 4 mg Q2H PRN Administration NICOTINE REPLACEMENT RX Pantoprazole Sodium 40 mg 05/23/17 15:35 06/07/17 10:03 Protonix - PO 40 mg DAILY RAE Administration Multivit/Folic Acid/Iron 1 tab 05/20/17 10:00 06/07/17 10:03 Vitamins (Sjr) - PO 1 tab DAILY RAE Administration Pseudoephedrine/Triprolidine 1 combo 05/19/17 19:07 06/06/17 10:04 Actifed - PO 1 combo TID PRN Administration NASAL CONGESTION Quetiapine Fumarate 50 mg 05/20/17 11:00 06/07/17 17:02 Seroquel - PO 50 mg BID@1000,1700 RAE Administration Quetiapine Fumarate 150 mg 05/20/17 22:00 06/07/17 21:17 Seroquel - PO 150 mg HS RAE Administration Senna/Docusate Sodium 1 tablet 05/27/17 22:00 06/07/17 21:18 Pericolace - PO 1 tablet HS RAE Administration Sertraline HCl 100 mg 05/20/17 11:00 06/07/17 10:03 Zoloft - PO 100 mg DAILY RAE Administration Thiamine HCl 100 mg 05/19/17 22:00 06/07/17 21:17 Vitamin B1 - PO 100 mg HS RAE Administration Trimethobenzamide HCl 300 mg 05/29/17 12:20 05/31/17 12:16 Tigan - PO 300 mg QID PRN Administration NAUSEA AND/OR VOMITING Psychiatric Treatment Plan - Problem List (1) Opioid dependence Current Visit: Yes (2) Nicotine dependence Current Visit: Yes Qualifiers: Nicotine product type: cigarettes Substance use status: in withdrawal Qualified Code(s): F17.213 - Nicotine dependence, cigarettes, with withdrawal (3) MDD (major depressive disorder), recurrent episode, moderate Current Visit: Yes (4) ADHD (attention deficit hyperactivity disorder) Current Visit: Yes (5) Hepatitis C Current Visit: Yes Qualifiers: Viral hepatitis chronicity: chronic Hepatic coma status: without hepatic coma Qualified Code(s): B18.2 - Chronic viral hepatitis C
[2017-06-08] MEDS: NAPROXEN 500 MG TABLET (FP) PO SCH ×2 (09:49→21:22)
[2017-06-08] MEDS: PRENATAL VITAMINS W/ FOLIC ACID TABLET (FP) PO SCH (09:49)
[2017-06-08] MEDS: SERTRALINE HCL 50 MG TABLET (FP) PO SCH (09:49)
[2017-06-08] MEDS: QUEtiapine FUMARATE 50 MG TABLET PO SCH ×3 (09:49→21:21)
[2017-06-08] MEDS: PANTOPRAZOLE 40 MG TABLET (FP) PO SCH (09:49)
[2017-06-08] MEDS: NICOTINE 21 MG/24 HOURS TOPICAL PATCH TD SCH (09:50)
[2017-06-08] MEDS: BUPRENORPHINE/NALOXONE 8 MG/2 MG FILM PACKET SL SCH (09:50)
[2017-06-08] MEDS: MAG HYDROX/AL HYDROX/SIMETH 30 ML UNIT-DOSE CUP PO PRN ×2 (10:22→21:21)
[2017-06-08] MEDS: THIAMINE HCL 100 MG TABLET (FP) PO SCH (21:21)
[2017-06-08] MEDS: SENNOSIDES/DOCUSATE COMBO (SENNA PLUS) TABLET (UD) PO SCH (21:22)
[2017-06-08] MEDS: MIRTAZAPINE 15 MG TABLET (FP) PO SCH (21:22)
[2017-06-08] MEDS: DOCUSATE SODIUM 100 MG CAPSULE (FP) PO SCH (22:13)
[2017-06-09] MEDS: CYCLOBENZAPRINE HCL 10 MG TABLET (FP) PO SCH ×3 (06:10→21:42)
[2017-06-09] MEDS: GABAPENTIN 300 MG CAPSULE (FP) PO SCH ×3 (06:10→21:43)
[2017-06-09] MEDS: PANTOPRAZOLE 40 MG TABLET (FP) PO SCH (10:05)
[2017-06-09] MEDS: QUEtiapine FUMARATE 50 MG TABLET PO SCH ×3 (10:05→21:44)
[2017-06-09] MEDS: NICOTINE 21 MG/24 HOURS TOPICAL PATCH TD SCH (10:05)
[2017-06-09] MEDS: NAPROXEN 500 MG TABLET (FP) PO SCH ×2 (10:05→21:43)
[2017-06-09] MEDS: SERTRALINE HCL 50 MG TABLET (FP) PO SCH (10:05)
[2017-06-09] MEDS: PRENATAL VITAMINS W/ FOLIC ACID TABLET (FP) PO SCH (10:05)
[2017-06-09] MEDS: BUPRENORPHINE/NALOXONE 8 MG/2 MG FILM PACKET SL SCH (10:06)
[2017-06-09] MEDS: NICOTINE POLACRILEX 4 MG GUM BC PRN (10:29)
[2017-06-09] MEDS: DOCUSATE SODIUM 100 MG CAPSULE (FP) PO SCH (21:42)
[2017-06-09] MEDS: MIRTAZAPINE 15 MG TABLET (FP) PO SCH (21:43)
[2017-06-09] MEDS: SENNOSIDES/DOCUSATE COMBO (SENNA PLUS) TABLET (UD) PO SCH (21:43)
[2017-06-09] MEDS: THIAMINE HCL 100 MG TABLET (FP) PO SCH (21:44)
[2017-06-10] MEDS: CYCLOBENZAPRINE HCL 10 MG TABLET (FP) PO SCH ×3 (06:10→21:25)
[2017-06-10] MEDS: GABAPENTIN 300 MG CAPSULE (FP) PO SCH ×3 (06:10→21:25)
[2017-06-10] MEDS: NICOTINE 21 MG/24 HOURS TOPICAL PATCH TD SCH (09:59)
[2017-06-10] MEDS: NAPROXEN 500 MG TABLET (FP) PO SCH ×2 (09:59→21:25)
[2017-06-10] MEDS: BUPRENORPHINE/NALOXONE 8 MG/2 MG FILM PACKET SL SCH (10:00)
[2017-06-10] MEDS: QUEtiapine FUMARATE 50 MG TABLET PO SCH ×3 (10:00→21:25)
[2017-06-10] MEDS: SERTRALINE HCL 50 MG TABLET (FP) PO SCH (10:00)
[2017-06-10] MEDS: PRENATAL VITAMINS W/ FOLIC ACID TABLET (FP) PO SCH (10:00)
[2017-06-10] MEDS: PANTOPRAZOLE 40 MG TABLET (FP) PO SCH (10:00)
[2017-06-10] MEDS: THIAMINE HCL 100 MG TABLET (FP) PO SCH (21:24)
[2017-06-10] MEDS: SENNOSIDES/DOCUSATE COMBO (SENNA PLUS) TABLET (UD) PO SCH (21:25)
[2017-06-10] MEDS: MIRTAZAPINE 15 MG TABLET (FP) PO SCH (21:25)
[2017-06-10] MEDS: DOCUSATE SODIUM 100 MG CAPSULE (FP) PO SCH (22:33)
[2017-06-11] MEDS: GABAPENTIN 300 MG CAPSULE (FP) PO SCH ×3 (06:12→21:13)
[2017-06-11] MEDS: CYCLOBENZAPRINE HCL 10 MG TABLET (FP) PO SCH ×3 (06:12→21:13)
[2017-06-11] MEDS: PANTOPRAZOLE 40 MG TABLET (FP) PO SCH (09:58)
[2017-06-11] MEDS: NICOTINE 21 MG/24 HOURS TOPICAL PATCH TD SCH (09:58)
[2017-06-11] MEDS: BUPRENORPHINE/NALOXONE 8 MG/2 MG FILM PACKET SL SCH (09:58)
[2017-06-11] MEDS: PRENATAL VITAMINS W/ FOLIC ACID TABLET (FP) PO SCH (09:58)
[2017-06-11] MEDS: NAPROXEN 500 MG TABLET (FP) PO SCH ×2 (09:58→21:13)
[2017-06-11] MEDS: SERTRALINE HCL 50 MG TABLET (FP) PO SCH (09:58)
[2017-06-11] MEDS: QUEtiapine FUMARATE 50 MG TABLET PO SCH ×3 (09:58→21:14)
[2017-06-11] MEDS: MAG HYDROX/AL HYDROX/SIMETH 30 ML UNIT-DOSE CUP PO PRN (10:34)
[2017-06-11] MEDS: MIRTAZAPINE 15 MG TABLET (FP) PO SCH (21:13)
[2017-06-11] MEDS: SENNOSIDES/DOCUSATE COMBO (SENNA PLUS) TABLET (UD) PO SCH (21:13)
[2017-06-11] MEDS: THIAMINE HCL 100 MG TABLET (FP) PO SCH (21:15)
[2017-06-11] MEDS: DOCUSATE SODIUM 100 MG CAPSULE (FP) PO SCH ×2 (21:15→21:45)
[2017-06-12] MEDS: CYCLOBENZAPRINE HCL 10 MG TABLET (FP) PO SCH ×3 (06:17→21:11)
[2017-06-12] MEDS: GABAPENTIN 300 MG CAPSULE (FP) PO SCH ×3 (06:17→21:10)
[2017-06-12] MEDS: SERTRALINE HCL 50 MG TABLET (FP) PO SCH (10:01)
[2017-06-12] MEDS: BUPRENORPHINE/NALOXONE 8 MG/2 MG FILM PACKET SL SCH (10:01)
[2017-06-12] MEDS: NICOTINE 21 MG/24 HOURS TOPICAL PATCH TD SCH (10:01)
[2017-06-12] MEDS: NAPROXEN 500 MG TABLET (FP) PO SCH ×2 (10:01→21:11)
[2017-06-12] MEDS: PANTOPRAZOLE 40 MG TABLET (FP) PO SCH (10:01)
[2017-06-12] MEDS: QUEtiapine FUMARATE 50 MG TABLET PO SCH ×3 (10:01→21:11)
[2017-06-12] MEDS: PRENATAL VITAMINS W/ FOLIC ACID TABLET (FP) PO SCH (10:01)
[2017-06-12] MEDS: NICOTINE POLACRILEX 4 MG GUM BC PRN (10:20)
[2017-06-12] MEDS: THIAMINE HCL 100 MG TABLET (FP) PO SCH (21:10)
[2017-06-12] MEDS: SENNOSIDES/DOCUSATE COMBO (SENNA PLUS) TABLET (UD) PO SCH (21:10)
[2017-06-12] MEDS: DOCUSATE SODIUM 100 MG CAPSULE (FP) PO SCH (21:10)
[2017-06-12] MEDS: MIRTAZAPINE 15 MG TABLET (FP) PO SCH (21:11)
[2017-06-13] MEDS: GABAPENTIN 300 MG CAPSULE (FP) PO SCH ×3 (06:09→21:10)
[2017-06-13] MEDS: CYCLOBENZAPRINE HCL 10 MG TABLET (FP) PO SCH ×3 (06:09→21:09)
--- NOTE | 2017-06-13 07:35 | PN ---
Psychiatric Progress Note Vital Signs: Vital Signs Period Temp Pulse Resp BP Sys/Evans Pulse Ox Last 24 Hr 98.2 F 88 18-20 104/65 Date of Session: 06/13/17 Chief Complaint:: Discharge Note HPI: Patient addressing Opoid Dependence comorbid with Nicotine Dependence , ADHD and MDD, recurrent episode, moderate ROS: Hep C Current Medications: Active Medications Generic Name Dose Route Start Last Admin Trade Name Freq PRN Reason Stop Dose Admin Acetaminophen 650 mg 05/19/17 19:07 Tylenol - PO Q4H PRN PAIN Al Hydroxide/Mg Hydroxide 30 ml 05/19/17 19:07 06/11/17 10:34 Mylanta Oral Suspension - PO 30 ml Q6H PRN Administration DYSPEPSIA Buprenorphine/Naloxone 1 each 06/07/17 10:00 06/12/17 10:01 Suboxone 8mg/2mg Sl Film - SL 06/14/17 09:59 1 each DAILY RAE Administration Clonidine 0.1 mg 06/07/17 14:47 Catapres - PO BID PRN ANXIETY Cyclobenzaprine HCl 10 mg 05/23/17 15:35 06/13/17 06:09 Flexeril - PO 10 mg TID RAE Administration Docusate Sodium 300 mg 06/03/17 22:00 06/12/17 21:10 Colace - PO 300 mg HS RAE Administration Eucalyptus/Menthol/Phenol/Sorbitol 1 each 05/19/17 19:07 Cepastat Lozenge - MM Q4H PRN SORE THROAT Gabapentin 600 mg 05/20/17 14:00 06/13/17 06:09 Neurontin - PO 600 mg TID RAE Administration Guaifenesin 10 ml 05/19/17 19:07 Robitussin Dm - PO Q6H PRN COUGH Ibuprofen 400 mg 05/19/17 19:07 05/23/17 14:23 Motrin - PO 400 mg Q6H PRN Administration SEVERE PAIN Loperamide HCl 4 mg 05/19/17 19:07 Imodium - PO Q6H PRN DIARRHEA Magnesium Citrate 300 ml 05/19/17 19:07 06/12/17 21:12 Citroma - PO 300 ml Q48H PRN Administration CONSTIPATION Magnesium Hydroxide 30 ml 05/19/17 19:07 06/04/17 09:37 Milk Of Magnesia - PO 30 ml DAILY PRN Administration CONSTIPATION Mirtazapine 15 mg 05/20/17 22:00 06/12/17 21:11 Remeron - PO 15 mg HS RAE Administration Naproxen 500 mg 05/23/17 22:00 06/12/17 21:11 Naprosyn - PO 500 mg BID RAE Administration Nicotine 21 mg 05/20/17 10:00 06/12/17 10:01 Nicoderm Patch - TD 21 mg DAILY RAE Administration Nicotine Polacrilex 4 mg 05/19/17 19:07 06/12/17 10:20 Nicorette Gum - BC 4 mg Q2H PRN Administration NICOTINE REPLACEMENT RX Pantoprazole Sodium 40 mg 05/23/17 15:35 06/12/17 10:01 Protonix - PO 40 mg DAILY RAE Administration Multivit/Folic Acid/Iron 1 tab 05/20/17 10:00 06/12/17 10:01 Vitamins (Sjr) - PO 1 tab DAILY RAE Administration Pseudoephedrine/Triprolidine 1 combo 05/19/17 19:07 06/06/17 10:04 Actifed - PO 1 combo TID PRN Administration NASAL CONGESTION Quetiapine Fumarate 50 mg 05/20/17 11:00 06/12/17 16:54 Seroquel - PO 50 mg BID@1000,1700 RAE Administration Quetiapine Fumarate 150 mg 05/20/17 22:00 06/12/17 21:11 Seroquel - PO 150 mg HS RAE Administration Senna/Docusate Sodium 1 tablet 05/27/17 22:00 06/12/17 21:10 Pericolace - PO 1 tablet HS RAE Administration Sertraline HCl 100 mg 05/20/17 11:00 06/12/17 10:01 Zoloft - PO 100 mg DAILY RAE Administration Thiamine HCl 100 mg 05/19/17 22:00 06/12/17 21:10 Vitamin B1 - PO 100 mg HS RAE Administration Trimethobenzamide HCl 300 mg 05/29/17 12:20 05/31/17 12:16 Tigan - PO 300 mg QID PRN Administration NAUSEA AND/OR VOMITING Current Side Effect: No Lab tests ordered: Yes Lab tests reviewed: Yes Provider note:: Patient will complete this program on 06/14/17. 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 She responded well to Zoloft 100 mg po daily, Gabapentin 600 mg po TID, Seroquel 50 mg po BID & 150 mg po HS and Remeron 15 mg po HS. Scripts for 30 days supply of medication will be electronically transmitted to [facility] at [address] [place] [address]. She is stable for discharge on 06/14/17 Total face to face time:: 35 Mental Status Exam - Mental Status Exam Alert and Oriented to: Time, Place, Person Cognitive Function: Fair Patient Appearance: Well Groomed Mood: Hopeful, Euthymic Affect: Appropriate Patient Behavior: Cooperative Speech Pattern: Clear Voice Loudness: Normal Thought Process: Intact, Goal Oriented Thought Disorder: Not Present Hallucinations: Denies Suicidal Ideation: Denies Homicidal Ideation: Denies Insight/Judgement: Fair Sleep: Fair Appetite: Good Muscle strength/Tone: Normal Gait/Station: Normal Psychiatric Treatment Plan - Problem List (1) Opioid dependence Current Visit: Yes (2) Nicotine dependence Current Visit: Yes Qualifiers: Nicotine product type: cigarettes Substance use status: in withdrawal Qualified Code(s): F17.213 - Nicotine dependence, cigarettes, with withdrawal (3) MDD (major depressive disorder), recurrent episode, moderate Current Visit: Yes (4) ADHD (attention deficit hyperactivity disorder) Current Visit: Yes (5) Hepatitis C Current Visit: Yes Qualifiers: Viral hepatitis chronicity: chronic Hepatic coma status: without hepatic coma Qualified Code(s): B18.2 - Chronic viral hepatitis C Initial treatment plan: Patient will be discharged tomorrow and referred to [facility] for custodial residential treatment
[2017-06-13] MEDS: QUEtiapine FUMARATE 50 MG TABLET PO SCH ×3 (10:09→21:10)
[2017-06-13] MEDS: BUPRENORPHINE/NALOXONE 8 MG/2 MG FILM PACKET SL SCH (10:09)
[2017-06-13] MEDS: PRENATAL VITAMINS W/ FOLIC ACID TABLET (FP) PO SCH (10:09)
[2017-06-13] MEDS: NAPROXEN 500 MG TABLET (FP) PO SCH ×2 (10:09→21:10)
[2017-06-13] MEDS: PANTOPRAZOLE 40 MG TABLET (FP) PO SCH (10:09)
[2017-06-13] MEDS: SERTRALINE HCL 50 MG TABLET (FP) PO SCH (10:09)
[2017-06-13] MEDS: NICOTINE 21 MG/24 HOURS TOPICAL PATCH TD SCH (10:10)
[2017-06-13] MEDS: MIRTAZAPINE 15 MG TABLET (FP) PO SCH (21:09)
[2017-06-13] MEDS: THIAMINE HCL 100 MG TABLET (FP) PO SCH (21:09)
[2017-06-13] MEDS: DOCUSATE SODIUM 100 MG CAPSULE (FP) PO SCH (21:10)
[2017-06-13] MEDS: SENNOSIDES/DOCUSATE COMBO (SENNA PLUS) TABLET (UD) PO SCH (21:10)
[2017-06-14] MEDS: CYCLOBENZAPRINE HCL 10 MG TABLET (FP) PO SCH (05:59)
[2017-06-14] MEDS: GABAPENTIN 300 MG CAPSULE (FP) PO SCH (05:59)
[2017-06-14 06:50] VITALS: BP 103/60; PULSE 91; TEMP 98
[2017-06-14] MEDS: NICOTINE 21 MG/24 HOURS TOPICAL PATCH TD SCH (09:40)
[2017-06-14] MEDS: QUEtiapine FUMARATE 50 MG TABLET PO SCH (09:40)
[2017-06-14] MEDS: PRENATAL VITAMINS W/ FOLIC ACID TABLET (FP) PO SCH (09:40)
[2017-06-14] MEDS: NAPROXEN 500 MG TABLET (FP) PO SCH (09:40)
[2017-06-14] MEDS: SERTRALINE HCL 50 MG TABLET (FP) PO SCH (09:40)
[2017-06-14] MEDS: PANTOPRAZOLE 40 MG TABLET (FP) PO SCH (09:40)
[2017-06-14] MEDS ORDERED: BUPRENORPHINE/NALOXONE 8 MG/2 MG FILM PACKET SL ONE (09:47)
== END 2017-06-14 10:15 | disposition home or self-care (01) | DRG 772 ==
LOC: YASAS 16:56 → Y3W 20:29
PROVIDERS: ADMIT Psychiatry & Neurology Psychiatry; ATTEND Psychiatry & Neurology Psychiatry
PROC: HZ42ZZZ Group Counseling for Substance Abuse Treatment, Cognitive-Behavioral (ICD-10-PCS; principal; 2017-05-19)
DX: F11.20 Opioid dependence, uncomplicated (principal); F17.213 Nicotine dependence, cigarettes, with withdrawal; F33.1 Major depressive disorder, recurrent, moderate; F90.9 Attention-deficit hyperactivity disorder, unspecified type; B18.2 Chronic viral hepatitis C; R00.0 Tachycardia, unspecified
CPT/HCPCS: 36415; 80053; 81003; 85027; 86593; 87389; 93005; 93010

== ENCOUNTER 2018-05-03 15:29 | Inpatient (IN) | payer OTHER ==
--- NOTE | 2018-05-03 20:35 | HP ---
CIWA Score - Admission Criteria OASAS Guidelines: Admission for Medically Managed Detox: Requires at least one of the followin. CIWA greater than 12 2. Seizures within the past 24 hours 3. Delirium tremens within the past 24 hours 4. Hallucinations within the past 24 hours 5. Acute intervention needed for co occurring medical disorder 6. Acute intervention needed for co occurring psychiatric disorder 7. Severe withdrawal that cannot be handled at a lower level of care (continued vomiting, continued diarrhea, abnormal vital signs) requiring intravenous medication and/or fluids 8. Admission ROS S - HPI Chief Complaint: Pt is here for a rehab admission. " I can't stop using heroin". Pt is on methadone 90mg now. Pt states she was here last year and did well in rehab and was able to stay away from heroin, and at discharge started on methadone. Pt states she relapsed to using heroin 4 months ago- while getting methadone. Pt states her counselor at [facility] called to get pt admitted to rehab.- to help her stop using illicit opiates. Urine tox - pos for amphetamines, fentanyl, oxycodone, methadone, bar, Mop ISTOP- shows adderall and Klonopin Allergies/Adverse Reactions: Allergies Allergy/AdvReac Type Severity Reaction Status Date / Time No Known Allergies Allergy Verified 05/19/17 18:48 - Ebola screening Have you traveled outside of the country in the last 21 days: No Have you had contact with anyone from an Ebola affected area: No Do you have a fever: No Patient History - Patient Medical History Hx Anemia: No Hx Asthma: No Hx Chronic Obstructive Pulmonary Disease (COPD): No Hx Cancer: No Hx Cardiac Disorders: No Hx Congestive Heart Failure: No Hx Hypertension: No Hx Hypercholesterolemia: No Hx Pacemaker: No HX Cerebrovascular Accident: No Hx Seizures: No Hx Dementia: No Hx Diabetes: No Hx Gastrointestinal Disorders: No Hx Liver Disease: No Hx Genitourinary Disorders: No Hx Sexually Transmitted Disorders: No Hx Renal Disease (ESRD): No Hx Thyroid Disease: No Hx Human Immunodeficiency Virus (HIV): No Hx Hepatitis C: Yes Hx Depression: Yes Hx Suicide Attempt: No Hx Bipolar Disorder: No Hx Schizophrenia: No - Patient Surgical History Past Surgical History: Yes Hx Neurologic Surgery: No Hx Cataract Extraction: No Hx Cardiac Surgery: No Hx Lung Surgery: No Hx Breast Surgery: No Hx Breast Biopsy: No Hx Abdominal Surgery: No Hx Appendectomy: No Hx Cholecystectomy: No Hx Genitourinary Surgery: No Hx Section: Yes (x 1 2011) Hx Orthopedic Surgery: Yes (right mid finger 2016) Hx Hysterectomy: No Anesthesia Reaction: No - PPD History Date: 05/21/17 - Reproductive History Last Menstrual Period: 08/05/11 - Smoking Cessation Smoking history: Current every day smoker Have you smoked in the past 12 months: Yes Aproximately how many cigarettes per day: 20 Cigars Per Day: 0 Hx Chewing Tobacco Use: No Initiated information on smoking cessation: Yes 'Breaking Loose' booklet given: 05/03/18 - Substances Abused Heroin Route: Injection Frequency: Daily Amount used: 2 bags Age of first use: 26 Date of Last Use: 05/03/18 Family Disease History - Family Disease History Family Disease History: Heart Disease: Father, Other: Mother (no contact), Sister (no contact) Admission Physical Exam [facility] - Physical General Appearance: Yes: Within Normal Limits HEENTM: Yes: Within Normal Limits, Normocephalic, Pharynx Normal Respiratory: Yes: Within Normal Limits, Lungs Clear Neck: Yes: Within Normal Limits, No masses,lesions,Nodules Breast: Yes: Breast Exam Deferred Cardiology: Yes: Within Normal Limits, Regular Rhythm, Regular Rate Abdominal: Yes: Within Normal Limits Genitourinary: Yes: Within Normal Limits Back: Yes: Within Normal Limits Musculoskeletal: Yes: Within Normal Limits Extremities: Yes: Within Normal Limits Neurological: Yes: Within Normal Limits Integumentary: Yes: Within Normal Limits Lymphatic: Yes: Within Normal Limits - Diagnostic (1) Opioid dependence on agonist therapy Current Visit: Yes Status: Acute (2) Heroin abuse Current Visit: Yes Status: Acute (3) Anxiety and depression Current Visit: No Status: Suspected [facility] Breath Alcohol Content Breath Alcohol Content: 0
[2018-05-03] MEDS ORDERED: MENTHOL/PHENOL 1 EACH UD MM PRN (21:00)
[2018-05-03] MEDS ORDERED: IBUPROFEN 400 MG TABLET (FP) PO PRN (21:00)
[2018-05-03] MEDS ORDERED: guaiFENesin/D-METHORPHAN HB 10 ML UNIT-DOSE CUPS PO PRN (21:00)
[2018-05-03] MEDS ORDERED: MAGNESIUM HYDROX 2400MG/30ML ORAL SUSPENSION 30 ML CUP PO PRN (21:00)
[2018-05-03] MEDS ORDERED: MAGNESIUM CITRATE 300 ML BOTTLE PO PRN (21:00)
[2018-05-03] MEDS ORDERED: P-EPHED 60MG/TRIPROLIDI 2.5MG TABLET PO PRN (21:00)
[2018-05-03] MEDS ORDERED: MAG HYDROX/AL HYDROX/SIMETH 30 ML UNIT-DOSE CUP PO PRN (21:00)
[2018-05-03] MEDS ORDERED: LOPERAMIDE HCL 2 MG CAPSULE PO PRN (21:00)
[2018-05-03] MEDS ORDERED: cloNIDine HCL 0.1 MG TABLET PO PRN (21:06)
[2018-05-03] MEDS ORDERED: METHADONE HCL 10 MG TABLET PO ONE (21:10)
[2018-05-03] MEDS ORDERED: MELATONIN 5 MG TABLETS PO PRN (22:00)
[2018-05-03] MEDS ORDERED: THIAMINE HCL 100 MG TABLET (FP) PO SCH (22:00)
[2018-05-03 23:13] LABS: URINE APPEARANCE CLOUDY; URINE BILIRUBIN NEGATIVE (<2.0 mg/dL); URINE COLOR AMBER; URINE GLUCOSE (UA) NEGATIVE (NEGATIVE); URINE KETONE TRACE (NEGATIVE); URINE LEUK ESTERASE NEGATIVE (NEGATIVE); URINE NITRITE NEGATIVE (NEGATIVE); URINE PROTEIN NEGATIVE (NEGATIVE); URINE UROBILINOGEN NEGATIVE mg/dL (0.2-1.0)
[2018-05-04] MEDS ORDERED: TUBERCULIN PPD 5 TU/0.1ML VIAL ID ONE (02:08)
[2018-05-04] MEDS ORDERED: METHADONE HCL 10 MG TABLET PO ONE (02:15)
[2018-05-04] MEDS: hydrOXYzine PAMOATE 50 MG CAPSULE (FP) PO PRN ×2 (02:19→21:32)
[2018-05-04] MEDS: THIAMINE HCL 100 MG TABLET (FP) PO SCH ×2 (02:19→21:32)
--- NOTE | 2018-05-04 10:00 | PN ---
[facility] Progress Note Note: PT IS A NEW ADMISSION TO [facility]. PT ON METHADONE 90 MG PO DAILY AT [facility]. PT LAST DOSED 04/30/18. PT RECEIVED METHADONE 30 MG ON ADMISSION. PT WILL BE BUILT UP DIRECTED. Vital Signs 05/04/18 05/04/18 05/04/18 02:18 03:30 07:02 Temperature 98.1 F 98.0 F Pulse Rate 68 85 Respiratory 18 18 17 Rate Blood Pressure 93/70 96/71 Laboratory Tests 05/03/18 22:00 Urine Color Rachel Urine Appearance Cloudy Urine pH 5.0 D Ur Specific [place] 1.029 Urine Protein Negative Urine Glucose (UA) Negative Urine Ketones Trace H Urine Blood Negative Urine Nitrite Negative Urine Bilirubin Negative Urine Urobilinogen Negative Ur Leukocyte Esterase Negative PLAN:METHADONE 40 MG PO NOW METHADONE 80 MG PO X 1 ON 05/05/18 METHADONE 90 MG PO ON 05/06/18 AND MAINTAIN PT ON DOSE.
[2018-05-04] MEDS ORDERED: METHADONE HCL 40 MG DISPERSABLE TABLET PO ONE (10:25)
[2018-05-04] MEDS: PRENATAL VITAMINS W/ FOLIC ACID TABLET (FP) PO SCH (10:27)
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
[2018-05-04 10:40] LABS: HEMOGLOBIN 10.9 GM/dL (10.7-15.3); MCH 26.6 pg (25.7-33.7); MCHC 32.1 g/dl (32.0-36.0); MEAN CELL VOLUME 82.9 fl (80-96); MEAN PLT VOLUME 8.5 fl (7.5-11.1); PLATELET COUNT 279 K/MM3 (134-434); RDW 15.1 % (11.6-15.6); WHITE BLOOD COUNT 5.5 K/mm3 (4.0-10.0)
[2018-05-04 11:01] LABS: ALBUMIN 3.4 g/dl (3.4-5.0); ALK PHOS 58 U/L (45-117); ANION GAP 8 MMOL/L (8-16); BILIRUBIN,TOTAL 0.4 mg/dL (0.2-1); BLOOD UREA NITROGEN 20 mg/dL (7-18); CALCIUM 8.2 mg/dL (8.5-10.1); CHLORIDE 108 mmol/L (98-107); CO2 24 mmol/L (21-32); CREATININE 0.8 mg/dL (0.55-1.3); GLUCOSE,RANDOM 100 mg/dL (74-106); POTASSIUM 4.3 mmol/L (3.5-5.1); SGOT/AST 22 U/L (15-37); SGPT/ALT 25 U/L (13-61); SODIUM 140 mmol/L (136-145); TOT PROT 6.8 g/dl (6.4-8.2)
[2018-05-04] MEDS: QUEtiapine FUMARATE 50 MG TABLET PO PRN (21:32)
[2018-05-04] MEDS: MIRTAZAPINE 15 MG TABLET (FP) PO SCH (21:34)
[2018-05-04] MEDS: GABAPENTIN 300 MG CAPSULE (FP) PO SCH (21:34)
--- NOTE | 2018-05-04 22:32 | HP ---
[facility] Rehab Assess/Revision - Vital signs Vital Signs: Vital Signs Period Temp Pulse Resp BP Sys/Evans Pulse Ox Last 24 Hr 98.0 F-98.1 F 68-85 17-18 93-96/70-71 Inpatient Rehab Admission - Initial Determination Are CD services needed?: Yes Free of communicable disease: Yes Not in need of hospitalization: Yes - Rehab Admission Criteria Patient is meeting Inpatient Rehab admission criteria:: Yes
[2018-05-05] MEDS ORDERED: METHADONE HCL 40 MG DISPERSABLE TABLET PO SCH (06:00)
[2018-05-05] MEDS: PRENATAL VITAMINS W/ FOLIC ACID TABLET (FP) PO SCH (10:31)
[2018-05-05] MEDS: NICOTINE 14 MG/24 HOURS TOPICAL PATCH TD SCH (12:30)
--- NOTE | 2018-05-05 14:51 | PN ---
[facility] Progress Note Note: Requesting nicotine patch/gum- ordered.
--- NOTE | 2018-05-05 15:59 | PN ---
Psychiatric Progress Note Vital Signs: Vital Signs Period Temp Pulse Resp BP Sys/Evans Pulse Ox Last 24 Hr 98.2 F 73 17-18 110/67 Date of Session: 05/05/18 Chief Complaint:: REports anxiety,mood instability,sleepiness during the day. HPI: Patient addressed Opioid and Alcohol dependence comorbid with substance induced mood disorder. Current Medications: Active Medications Generic Name Dose Route Start Last Admin Trade Name Freq PRN Reason Stop Dose Admin Acetaminophen 650 mg 05/03/18 21:00 Tylenol - PO Q4H PRN FEVER Al Hydroxide/Mg Hydroxide 30 ml 05/03/18 21:00 Mylanta Oral Suspension - PO Q6H PRN DYSPEPSIA Buspirone HCl 10 mg 05/05/18 16:00 Buspar - PO TID RAE Clonidine 0.2 mg 05/03/18 21:06 Catapres - PO BID PRN ANXIETY Eucalyptus/Menthol/Phenol/Sorbitol 1 each 05/03/18 21:00 Cepastat Lozenge - MM Q4H PRN SORE THROAT Gabapentin 300 mg 05/04/18 22:00 05/04/18 21:34 Neurontin - PO 300 mg HS RAE Administration Guaifenesin 10 ml 05/03/18 21:00 Robitussin Dm - PO Q6H PRN COUGH Hydroxyzine Pamoate 50 mg 05/03/18 21:07 05/04/18 21:32 Vistaril - PO 50 mg Q4H PRN Administration FOR ITCHING Ibuprofen 400 mg 05/03/18 21:00 Motrin - PO Q6H PRN Pain level 4-6 Loperamide HCl 4 mg 05/03/18 21:00 Imodium - PO Q6H PRN DIARRHEA Magnesium Citrate 300 ml 05/03/18 21:00 Citroma - PO Q48H PRN CONSTIPATION Magnesium Hydroxide 30 ml 05/03/18 21:00 Milk Of Magnesia - PO DAILY PRN CONSTIPATION Melatonin 5 mg 05/03/18 22:00 05/04/18 21:33 Melatonin PO 5 mg HS PRN Administration INSOMNIA Methadone HCl 80 mg/ Methadone 90 mg 05/06/18 06:00 HCl 10 mg PO 05/11/18 05:59 DAILY@0600 RAE Mirtazapine 45 mg 05/04/18 22:00 05/04/18 21:34 Remeron - PO 45 mg HS RAE Administration Nicotine 14 mg 05/05/18 11:30 05/05/18 12:30 Nicoderm Patch - TD Not Given DAILY RAE Nicotine Polacrilex 2 mg 05/05/18 11:32 Nicorette Gum - BUC Q2H PRN NICOTINE REPLACEMENT RX Multivit/Folic Acid/Iron 1 tab 05/04/18 10:00 05/05/18 10:31 Vitamins (Sjr) - PO 1 tab DAILY RAE Administration Pseudoephedrine/Triprolidine 1 combo 05/03/18 21:00 Actifed - PO TID PRN NASAL CONGESTION Quetiapine Fumarate 50 mg 05/04/18 10:49 05/04/18 21:32 Seroquel - PO 50 mg HS PRN Administration INSOMNIA Thiamine HCl 100 mg 05/04/18 02:15 05/04/18 21:32 Vitamin B1 - PO 100 mg HS RAE Administration Current Side Effect: No Lab tests ordered: No Lab tests reviewed: Yes Provider note:: Chart was revuwed,patient was seen in my office .She reports anxiryt,restlesness,sleepiness during the day since she stopped her adderall XR.Reports good result from Buspar in the past.Porperties of Buspar has been discussed with the patient .Buspar 10 mg po tid will be started todsay. Supportive therapy provided. Total face to face time:: 35 Mental Status Exam - Mental Status Exam Alert and Oriented to: Time, Place, Person Cognitive Function: Grossly Intact Patient Appearance: Unkempt Mood: Sad, Anxious, Irritable Affect: Mood Congruent, Labile Patient Behavior: Cooperative Speech Pattern: Clear Voice Loudness: Normal Thought Process: Goal Oriented Thought Disorder: Not Present Hallucinations: Denies Suicidal Ideation: Denies Homicidal Ideation: Denies Insight/Judgement: Fair Sleep: Fair Appetite: Fair Muscle strength/Tone: Normal Gait/Station: Normal Psychiatric Treatment Plan - Problem List (4) Hepatitis C Qualifiers: Viral hepatitis chronicity: chronic Hepatic coma status: without hepatic coma Qualified Code(s): B18.2 - Chronic viral hepatitis C
[2018-05-05] MEDS: busPIRone HCL 10 MG TABLET (FP) PO SCH ×2 (16:26→21:35)
[2018-05-05] MEDS: NICOTINE POLACRILEX 2 MG GUM BUC PRN (16:27)
[2018-05-05] MEDS: hydrOXYzine PAMOATE 50 MG CAPSULE (FP) PO PRN (21:35)
[2018-05-05] MEDS: GABAPENTIN 300 MG CAPSULE (FP) PO SCH (21:35)
[2018-05-05] MEDS: MIRTAZAPINE 15 MG TABLET (FP) PO SCH (21:35)
[2018-05-05] MEDS: THIAMINE HCL 100 MG TABLET (FP) PO SCH (21:35)
[2018-05-05] MEDS: QUEtiapine FUMARATE 50 MG TABLET PO PRN (21:35)
[2018-05-06] MEDS ORDERED: METHADONE HCL 10 MG TABLET PO SCH (06:00)
[2018-05-06] MEDS ORDERED: METHADONE HCL 40 MG DISPERSABLE TABLET ONE (06:13)
[2018-05-06] MEDS ORDERED: METHADONE HCL 10 MG TABLET ONE (06:13)
[2018-05-06] MEDS: busPIRone HCL 10 MG TABLET (FP) PO SCH ×3 (06:46→21:31)
[2018-05-06] MEDS: METHADONE 80 MG, METHADONE 10 MG PO SCH (06:46)
[2018-05-06] MEDS: PRENATAL VITAMINS W/ FOLIC ACID TABLET (FP) PO SCH (10:31)
[2018-05-06] MEDS: NICOTINE 14 MG/24 HOURS TOPICAL PATCH TD SCH (10:31)
[2018-05-06] MEDS: NICOTINE POLACRILEX 2 MG GUM BUC PRN ×3 (10:32→21:32)
[2018-05-06] MEDS ORDERED: ONDANSETRON *ODT* 4 MG TABLET SL PRN (13:35)
[2018-05-06] MEDS: GABAPENTIN 300 MG CAPSULE (FP) PO SCH (21:31)
[2018-05-06] MEDS: MIRTAZAPINE 15 MG TABLET (FP) PO SCH (21:31)
[2018-05-06] MEDS: THIAMINE HCL 100 MG TABLET (FP) PO SCH (21:31)
[2018-05-07] MEDS ORDERED: METHADONE HCL 10 MG TABLET ONE (03:18)
[2018-05-07] MEDS ORDERED: METHADONE HCL 40 MG DISPERSABLE TABLET ONE (03:18)
[2018-05-07] MEDS: METHADONE 80 MG, METHADONE 10 MG PO SCH (06:55)
[2018-05-07] MEDS: busPIRone HCL 10 MG TABLET (FP) PO SCH ×3 (06:56→21:34)
[2018-05-07] MEDS: NICOTINE 14 MG/24 HOURS TOPICAL PATCH TD SCH (10:30)
[2018-05-07] MEDS: PRENATAL VITAMINS W/ FOLIC ACID TABLET (FP) PO SCH (10:30)
[2018-05-07] MEDS: NICOTINE POLACRILEX 2 MG GUM BUC PRN ×3 (10:31→21:34)
[2018-05-07] MEDS: THIAMINE HCL 100 MG TABLET (FP) PO SCH (21:34)
[2018-05-07] MEDS: MIRTAZAPINE 15 MG TABLET (FP) PO SCH (21:34)
[2018-05-07] MEDS: GABAPENTIN 300 MG CAPSULE (FP) PO SCH (21:34)
[2018-05-08] MEDS ORDERED: METHADONE HCL 40 MG DISPERSABLE TABLET ONE (03:08)
[2018-05-08] MEDS ORDERED: METHADONE HCL 10 MG TABLET ONE (03:08)
[2018-05-08] MEDS: METHADONE 80 MG, METHADONE 10 MG PO SCH (06:42)
[2018-05-08] MEDS: busPIRone HCL 10 MG TABLET (FP) PO SCH ×3 (06:43→21:42)
[2018-05-08] MEDS: NICOTINE 14 MG/24 HOURS TOPICAL PATCH TD SCH (10:38)
[2018-05-08] MEDS: PRENATAL VITAMINS W/ FOLIC ACID TABLET (FP) PO SCH (10:40)
[2018-05-08] MEDS: NICOTINE POLACRILEX 2 MG GUM BUC PRN (10:56)
[2018-05-08] MEDS ORDERED: PT OWN MED DRAWER 7, Y5N ONE (12:13)
[2018-05-08] MEDS: COLLOIDAL OATMEAL 1 BAR EACH TP PRN (14:18)
[2018-05-08] MEDS: GABAPENTIN 300 MG CAPSULE (FP) PO SCH (21:42)
[2018-05-08] MEDS: MIRTAZAPINE 15 MG TABLET (FP) PO SCH (21:42)
[2018-05-08] MEDS: THIAMINE HCL 100 MG TABLET (FP) PO SCH (21:42)
[2018-05-08] MEDS: QUEtiapine FUMARATE 50 MG TABLET PO PRN (21:42)
[2018-05-08] MEDS: NICOTINE POLACRILEX 4 MG GUM BUC PRN (21:44)
[2018-05-09] MEDS ORDERED: METHADONE HCL 40 MG DISPERSABLE TABLET ONE (06:02)
[2018-05-09] MEDS ORDERED: METHADONE HCL 10 MG TABLET ONE (06:02)
[2018-05-09] MEDS: METHADONE 80 MG, METHADONE 10 MG PO SCH (06:35)
[2018-05-09] MEDS: busPIRone HCL 10 MG TABLET (FP) PO SCH ×3 (06:35→21:06)
[2018-05-09] MEDS: NICOTINE POLACRILEX 4 MG GUM BUC PRN ×4 (09:05→21:06)
[2018-05-09] MEDS: PRENATAL VITAMINS W/ FOLIC ACID TABLET (FP) PO SCH (09:05)
[2018-05-09] MEDS: NICOTINE 21 MG/24 HOURS TOPICAL PATCH TD SCH (09:05)
[2018-05-09] MEDS: GABAPENTIN 300 MG CAPSULE (FP) PO SCH (21:06)
[2018-05-09] MEDS: THIAMINE HCL 100 MG TABLET (FP) PO SCH (21:06)
[2018-05-09] MEDS: MIRTAZAPINE 15 MG TABLET (FP) PO SCH (21:06)
[2018-05-09] MEDS: QUEtiapine FUMARATE 50 MG TABLET PO PRN (21:08)
[2018-05-10] MEDS ORDERED: METHADONE HCL 40 MG DISPERSABLE TABLET ONE (02:57)
[2018-05-10] MEDS ORDERED: METHADONE HCL 10 MG TABLET ONE (02:57)
[2018-05-10] MEDS: busPIRone HCL 10 MG TABLET (FP) PO SCH ×3 (06:20→21:27)
[2018-05-10] MEDS: METHADONE 80 MG, METHADONE 10 MG PO SCH (06:21)
[2018-05-10] MEDS: NICOTINE POLACRILEX 4 MG GUM BUC PRN ×5 (08:46→21:28)
[2018-05-10] MEDS: PRENATAL VITAMINS W/ FOLIC ACID TABLET (FP) PO SCH (10:11)
[2018-05-10] MEDS: NICOTINE 21 MG/24 HOURS TOPICAL PATCH TD SCH (10:11)
[2018-05-10] MEDS: QUEtiapine FUMARATE 50 MG TABLET PO PRN (21:27)
[2018-05-10] MEDS: GABAPENTIN 300 MG CAPSULE (FP) PO SCH (21:27)
[2018-05-10] MEDS: MIRTAZAPINE 15 MG TABLET (FP) PO SCH (21:27)
[2018-05-10] MEDS: THIAMINE HCL 100 MG TABLET (FP) PO SCH (21:27)
[2018-05-11] MEDS ORDERED: METHADONE HCL 10 MG TABLET ONE (06:32)
[2018-05-11] MEDS: METHADONE 80 MG, METHADONE 10 MG PO SCH (06:33)
[2018-05-11] MEDS: busPIRone HCL 10 MG TABLET (FP) PO SCH ×3 (06:33→21:19)
[2018-05-11] MEDS ORDERED: METHADONE HCL 40 MG DISPERSABLE TABLET ONE (06:33)
[2018-05-11] MEDS: NICOTINE 21 MG/24 HOURS TOPICAL PATCH TD SCH (10:04)
[2018-05-11] MEDS: PRENATAL VITAMINS W/ FOLIC ACID TABLET (FP) PO SCH (10:04)
[2018-05-11] MEDS: NICOTINE POLACRILEX 4 MG GUM BUC PRN ×3 (10:05→21:21)
[2018-05-11] MEDS: MIRTAZAPINE 15 MG TABLET (FP) PO SCH (21:19)
[2018-05-11] MEDS: QUEtiapine FUMARATE 50 MG TABLET PO PRN (21:19)
[2018-05-11] MEDS: GABAPENTIN 300 MG CAPSULE (FP) PO SCH (21:20)
[2018-05-11] MEDS: THIAMINE HCL 100 MG TABLET (FP) PO SCH (21:20)
[2018-05-12] MEDS ORDERED: METHADONE HCL 10 MG TABLET ONE (02:49)
[2018-05-12] MEDS ORDERED: METHADONE HCL 40 MG DISPERSABLE TABLET ONE (02:50)
[2018-05-12] MEDS: METHADONE 80 MG, METHADONE 10 MG PO SCH (06:39)
[2018-05-12] MEDS: busPIRone HCL 10 MG TABLET (FP) PO SCH ×3 (06:40→21:20)
[2018-05-12] MEDS: NICOTINE POLACRILEX 4 MG GUM BUC PRN ×3 (06:41→16:41)
[2018-05-12] MEDS: NICOTINE 21 MG/24 HOURS TOPICAL PATCH TD SCH (10:13)
[2018-05-12] MEDS: PRENATAL VITAMINS W/ FOLIC ACID TABLET (FP) PO SCH (10:13)
--- NOTE | 2018-05-12 10:13 | PN ---
[facility] Progress Note Note: Pt has requested a 10mg methadone dose increase counselor called methadone program and d/w SW Farzaneh Perales? [phone], and the medical van driver Dr. Haddad [phone] and dose increase was approved.
[2018-05-12] MEDS ORDERED: METHADONE HCL 40 MG DISPERSABLE TABLET PO SCH (10:15)
[2018-05-12] MEDS: MIRTAZAPINE 15 MG TABLET (FP) PO SCH (21:20)
[2018-05-12] MEDS: GABAPENTIN 300 MG CAPSULE (FP) PO SCH (21:20)
[2018-05-12] MEDS: QUEtiapine FUMARATE 50 MG TABLET PO PRN (21:20)
[2018-05-12] MEDS: THIAMINE HCL 100 MG TABLET (FP) PO SCH (21:20)
[2018-05-13] MEDS ORDERED: METHADONE HCL 10 MG TABLET ONE (05:59)
[2018-05-13] MEDS ORDERED: METHADONE HCL 40 MG DISPERSABLE TABLET PO SCH (06:00)
[2018-05-13] MEDS ORDERED: METHADONE HCL 40 MG DISPERSABLE TABLET ONE (06:00)
[2018-05-13] MEDS: METHADONE 80 MG, METHADONE 20 MG PO SCH (06:39)
[2018-05-13] MEDS: busPIRone HCL 10 MG TABLET (FP) PO SCH ×3 (06:39→21:50)
[2018-05-13] MEDS: NICOTINE POLACRILEX 4 MG GUM BUC PRN ×6 (07:19→21:52)
[2018-05-13] MEDS: NICOTINE 21 MG/24 HOURS TOPICAL PATCH TD SCH (10:02)
[2018-05-13] MEDS: PRENATAL VITAMINS W/ FOLIC ACID TABLET (FP) PO SCH (10:02)
[2018-05-13] MEDS: ACETAMINOPHEN 325 MG TABLET (FP) PO PRN (18:52)
[2018-05-13] MEDS: THIAMINE HCL 100 MG TABLET (FP) PO SCH (21:50)
[2018-05-13] MEDS: MIRTAZAPINE 15 MG TABLET (FP) PO SCH (21:50)
[2018-05-13] MEDS: GABAPENTIN 300 MG CAPSULE (FP) PO SCH (21:51)
[2018-05-13] MEDS: QUEtiapine FUMARATE 50 MG TABLET PO PRN (21:51)
[2018-05-14] MEDS ORDERED: METHADONE HCL 10 MG TABLET ONE (05:51)
[2018-05-14] MEDS ORDERED: METHADONE HCL 40 MG DISPERSABLE TABLET ONE (05:52)
[2018-05-14] MEDS: busPIRone HCL 10 MG TABLET (FP) PO SCH ×3 (06:47→21:20)
[2018-05-14] MEDS: METHADONE 80 MG, METHADONE 20 MG PO SCH (06:47)
[2018-05-14] MEDS: NICOTINE POLACRILEX 4 MG GUM BUC PRN ×4 (06:49→21:21)
[2018-05-14] MEDS: COLLOIDAL OATMEAL 1 BAR EACH TP PRN (07:50)
[2018-05-14] MEDS: NICOTINE 21 MG/24 HOURS TOPICAL PATCH TD SCH (10:19)
[2018-05-14] MEDS: PRENATAL VITAMINS W/ FOLIC ACID TABLET (FP) PO SCH (10:19)
[2018-05-14] MEDS: MIRTAZAPINE 15 MG TABLET (FP) PO SCH (21:20)
[2018-05-14] MEDS: GABAPENTIN 300 MG CAPSULE (FP) PO SCH (21:20)
[2018-05-14] MEDS: THIAMINE HCL 100 MG TABLET (FP) PO SCH (21:20)
[2018-05-14] MEDS: ACETAMINOPHEN 325 MG TABLET (FP) PO PRN (22:08)
[2018-05-15] MEDS ORDERED: METHADONE HCL 40 MG DISPERSABLE TABLET ONE (05:48)
[2018-05-15] MEDS ORDERED: METHADONE HCL 10 MG TABLET ONE (05:48)
[2018-05-15] MEDS: METHADONE 80 MG, METHADONE 20 MG PO SCH (06:42)
[2018-05-15] MEDS: busPIRone HCL 10 MG TABLET (FP) PO SCH ×3 (06:42→21:19)
[2018-05-15] MEDS: NICOTINE POLACRILEX 4 MG GUM BUC PRN ×4 (06:43→17:24)
[2018-05-15] MEDS: PRENATAL VITAMINS W/ FOLIC ACID TABLET (FP) PO SCH (09:54)
[2018-05-15] MEDS: NICOTINE 21 MG/24 HOURS TOPICAL PATCH TD SCH (09:54)
[2018-05-15] MEDS: QUEtiapine FUMARATE 50 MG TABLET PO PRN (21:18)
[2018-05-15] MEDS: GABAPENTIN 300 MG CAPSULE (FP) PO SCH (21:19)
[2018-05-15] MEDS: THIAMINE HCL 100 MG TABLET (FP) PO SCH (21:19)
[2018-05-15] MEDS: MIRTAZAPINE 15 MG TABLET (FP) PO SCH (21:19)
[2018-05-15] MEDS: ACETAMINOPHEN 325 MG TABLET (FP) PO PRN (21:20)
[2018-05-16] MEDS ORDERED: METHADONE HCL 10 MG TABLET ONE (03:25)
[2018-05-16] MEDS ORDERED: METHADONE HCL 40 MG DISPERSABLE TABLET ONE (03:26)
[2018-05-16] MEDS: METHADONE 80 MG, METHADONE 20 MG PO SCH (07:17)
[2018-05-16] MEDS: busPIRone HCL 10 MG TABLET (FP) PO SCH ×3 (07:17→21:13)
[2018-05-16] MEDS: NICOTINE POLACRILEX 4 MG GUM BUC PRN ×5 (07:18→21:15)
[2018-05-16] MEDS: PRENATAL VITAMINS W/ FOLIC ACID TABLET (FP) PO SCH (10:22)
[2018-05-16] MEDS: NICOTINE 21 MG/24 HOURS TOPICAL PATCH TD SCH (10:22)
[2018-05-16] MEDS: QUEtiapine FUMARATE 50 MG TABLET PO PRN (21:13)
[2018-05-16] MEDS: THIAMINE HCL 100 MG TABLET (FP) PO SCH (21:13)
[2018-05-16] MEDS: ACETAMINOPHEN 325 MG TABLET (FP) PO PRN (21:14)
[2018-05-16] MEDS: GABAPENTIN 300 MG CAPSULE (FP) PO SCH (21:14)
[2018-05-16] MEDS: MIRTAZAPINE 15 MG TABLET (FP) PO SCH (21:14)
[2018-05-17] MEDS ORDERED: METHADONE HCL 40 MG DISPERSABLE TABLET ONE (03:28)
[2018-05-17] MEDS ORDERED: METHADONE HCL 10 MG TABLET ONE (03:28)
[2018-05-17] MEDS: METHADONE 80 MG, METHADONE 20 MG PO SCH (06:28)
[2018-05-17] MEDS: busPIRone HCL 10 MG TABLET (FP) PO SCH ×3 (06:29→21:39)
[2018-05-17] MEDS: NICOTINE POLACRILEX 4 MG GUM BUC PRN ×4 (06:30→21:39)
[2018-05-17] MEDS: NICOTINE 21 MG/24 HOURS TOPICAL PATCH TD SCH (10:01)
[2018-05-17] MEDS: PRENATAL VITAMINS W/ FOLIC ACID TABLET (FP) PO SCH (10:02)
[2018-05-17] MEDS: ACETAMINOPHEN 325 MG TABLET (FP) PO PRN (21:36)
[2018-05-17] MEDS: THIAMINE HCL 100 MG TABLET (FP) PO SCH (21:36)
[2018-05-17] MEDS: QUEtiapine FUMARATE 50 MG TABLET PO PRN (21:37)
[2018-05-17] MEDS: GABAPENTIN 300 MG CAPSULE (FP) PO SCH (21:37)
[2018-05-17] MEDS: MIRTAZAPINE 15 MG TABLET (FP) PO SCH (21:37)
[2018-05-18] MEDS ORDERED: METHADONE HCL 10 MG TABLET ONE (03:27)
[2018-05-18] MEDS ORDERED: METHADONE HCL 40 MG DISPERSABLE TABLET ONE (03:28)
[2018-05-18] MEDS: METHADONE 80 MG, METHADONE 20 MG PO SCH (06:46)
[2018-05-18] MEDS: NICOTINE POLACRILEX 4 MG GUM BUC PRN (06:47)
[2018-05-18] MEDS: busPIRone HCL 10 MG TABLET (FP) PO SCH (06:47)
[2018-05-18 07:19] VITALS: BP 128/77; PULSE 77; TEMP 98.1
== END 2018-05-18 09:00 | disposition home or self-care (01) | DRG 772 ==
LOC: YASAS 15:29 → Y3E 20:53
PROVIDERS: ADMIT Psychiatry & Neurology Psychiatry; ATTEND Psychiatry & Neurology Psychiatry
PROC: HZ42ZZZ Group Counseling for Substance Abuse Treatment, Cognitive-Behavioral (ICD-10-PCS; principal; 2018-05-03)
DX: F10.20 Alcohol dependence, uncomplicated (principal); F11.20 Opioid dependence, uncomplicated; F33.1 Major depressive disorder, recurrent, moderate; F19.24 Other psychoactive substance dependence with psychoactive substance-induced mood disorder; F90.9 Attention-deficit hyperactivity disorder, unspecified type; F41.9 Anxiety disorder, unspecified; B18.2 Chronic viral hepatitis C; Z59.0 Homelessness
CPT/HCPCS: 36415; 80053; 81003; 85027; 86593